=== PATIENT | female | born 1980 | race Caucasian/White ===

== ENCOUNTER → 2016-11-21 | Outpatient (CLI) | payer OTHER ==
[~2016-11-21] MED LIST: ADVI200T PO; BUSP1TAB PO; GABA-283 PO; IMIT6INJ SC; LIDO1OIN2 TOP; MIDO25TA PO; MIRA33504 PO; OMEP40CA2 PO; PROZ40CA PO; TIZA4CAP3 PO; TRAZ150T14 PO; WELL75TA PO; ZOFR20TA PO; ZONE100C4 PO; ZYRTTAB2 PO
[2016-11-23 09:38] LABS: FREE T4 0.93 NG/DL (0.76-1.46)
== END ==
LOC: M LAB 08:41
PROVIDERS: ATTEND Obstetrics & Gynecology
DX: N92.6 Irregular menstruation, unspecified (principal)

== ENCOUNTER → 2016-11-21 | Outpatient (CLI) | payer OTHER ==
[2016-11-21 09:23] LABS: BASO % 0.9 % (0.0-1.0); EOS # 0.2 K/mm3 (0.0-0.50); EOS % 3.2 % (0.0-3.0); LYMPH # 1.5 K/mm3 (1.5-4.5); LYMPH % 31.3 % (24.0-44.0); MEAN CORPUSCULAR HEMOGLOBIN 29.4 pg (27.0-33.0); MEAN CORPUSCULAR HGB CONC 32.8 g/dl (32.0-36.5); MEAN CORPUSCULAR VOLUME 89.6 fl (80.0-96.0); MONO # 0.3 K/mm3 (0.0-0.8); MONO % 5.3 % (0.0-5.0); NEUTROPHILS # 2.8 K/mm3 (1.8-7.7); NEUTROPHILS % 57.4 % (36.0-66.0); WHITE BLOOD COUNT 4.8 K/mm3 (4.0-10.0)
[2016-11-21 09:41] LABS: ALBUMIN 3.7 GM/DL (3.2-5.2); ALBUMIN/GLOBULIN RATIO 1.12 (1.00-1.93); ALKALINE PHOSPHATASE 79 U/L (45-117); ALT/SGPT 47 U/L (12-78); ANION GAP 10 MEQ/L (8-16); AST/SGOT 30 U/L (15-37); BILIRUBIN,TOTAL 0.5 MG/DL (0.2-1.0); BLOOD UREA NITROGEN 7 MG/DL (7-18); CALCIUM LEVEL 8.7 MG/DL (8.5-10.1); CARBON DIOXIDE LEVEL 26 MEQ/L (21-32); CHLORIDE LEVEL 106 MEQ/L (98-107); CHOLESTEROL LEVEL 234 MG/DL (<200); CREATININE FOR GFR 0.82 MG/DL (0.55-1.02); GLOMERULAR FILTRATION RATE > 60.0 (>60); GLUCOSE, FASTING 99 MG/DL (70-105); POTASSIUM SERUM 4.3 MEQ/L (3.5-5.1); SODIUM LEVEL 142 MEQ/L (136-145); TRIGLYCERIDES LEVEL 186 MG/DL (<150)
== END ==
LOC: M LAB 08:39
PROVIDERS: ATTEND Physician Assistant Medical
DX: E78.2 Mixed hyperlipidemia (principal)

== ENCOUNTER → 2017-03-08 | Outpatient (CLI) | payer OTHER ==
[2017-03-08 10:02] LABS: BASO % 0.7 % (0.0-1.0); EOS # 0.3 K/mm3 (0.0-0.50); EOS % 4.1 % (0.0-3.0); LYMPH # 1.8 K/mm3 (1.5-4.5); LYMPH % 25.8 % (24.0-44.0); MEAN CORPUSCULAR HEMOGLOBIN 30.2 pg (27.0-33.0); MEAN CORPUSCULAR HGB CONC 33.3 g/dl (32.0-36.5); MEAN CORPUSCULAR VOLUME 90.8 fl (80.0-96.0); MONO # 0.4 K/mm3 (0.0-0.8); MONO % 6.1 % (0.0-5.0); NEUTROPHILS % 61.2 % (36.0-66.0); RED CELL DISTRIBUTION WIDTH 12.9 % (11.5-14.5); WHITE BLOOD COUNT 6.5 K/mm3 (4.0-10.0)
[2017-03-08 10:26] LABS: ALBUMIN 3.5 GM/DL (3.2-5.2); ALBUMIN/GLOBULIN RATIO 1.09 (1.00-1.93); ALKALINE PHOSPHATASE 77 U/L (45-117); ALT/SGPT 49 U/L (12-78); ANION GAP 7 MEQ/L (8-16); AST/SGOT 28 U/L (15-37); BILIRUBIN,TOTAL 0.6 MG/DL (0.2-1.0); BLOOD UREA NITROGEN 9 MG/DL (7-18); CALCIUM LEVEL 8.4 MG/DL (8.5-10.1); CARBON DIOXIDE LEVEL 30 MEQ/L (21-32); CHLORIDE LEVEL 104 MEQ/L (98-107); CHOLESTEROL LEVEL 142 MG/DL (<200); CREATININE FOR GFR 0.82 MG/DL (0.55-1.02); GLOMERULAR FILTRATION RATE > 60.0 (>60); GLUCOSE, FASTING 106 MG/DL (70-105); SODIUM LEVEL 141 MEQ/L (136-145); TOTAL PROTEIN 6.7 GM/DL (6.4-8.2); TRIGLYCERIDES LEVEL 165 MG/DL (<150)
== END ==
LOC: M LAB 09:12
PROVIDERS: ATTEND Physician Assistant Medical
DX: E78.2 Mixed hyperlipidemia (principal)

== ENCOUNTER 2017-03-16 07:30 | Outpatient (RCR) | payer OTHER | END 2017-03-17 | LOC: M PT 07:30 | PROVIDERS: ATTEND Dentist General Practice | DX: Z51.89 Encounter for other specified aftercare (principal); M26.603 Bilateral temporomandibular joint disorder, unspecified ==

== ENCOUNTER 2017-04-06 07:30 | Outpatient (RCR) | payer OTHER ==
[~2017-04-06 07:30] MED LIST changes: +MIDO2.5T PO; -MIDO25TA PO; -TRAZ150T14 PO; +TRAZ1TAB14 PO; -ZONE100C4 PO; +ZONE1CAP PO; -ZYRTTAB2 PO; +ZYRTTAB8 PO
[2017-04-09] MEDS ORDERED: ZYRT10TA2 PO (20:18)
[2017-04-09] MEDS ORDERED: VITA1CAP40 PO (20:18)
[2017-04-09] MEDS ORDERED: LIPI20TA PO (20:18)
[2017-04-09] MEDS ORDERED: SING10TA32 PO (20:18)
[2017-04-09] MEDS ORDERED: PROT1TAB2 PO (20:18)
[2017-04-09] MEDS ORDERED: LYRI300C PO (20:18)
[2017-04-09] MEDS ORDERED: GABA-283 PO (20:18)
== END 2017-04-16 ==
LOC: M PT 07:30
PROVIDERS: ATTEND Dentist General Practice
DX: M26.623 Arthralgia of bilateral temporomandibular joint (principal); Z51.89 Encounter for other specified aftercare

== ENCOUNTER → 2017-04-07 | Outpatient (CLI) | payer OTHER ==
[~2017-04-07] MED LIST changes: +LIPI20TA PO; +LYRI300C PO; -MIDO2.5T PO; +MIDO25TA PO; +PROT1TAB2 PO; +SING10TA32 PO; +TRAZ150T14 PO; -TRAZ1TAB14 PO; +VITA50003 PO; +ZONE100C4 PO; -ZONE1CAP PO; +ZYRT10TA2 PO; +ZYRTTAB2 PO; -ZYRTTAB8 PO
--- NOTE | 2017-04-07 08:30 | REP ---
Clinical: Chest pain . Comparison: 02/19/2016 . Technique: PA and lateral. Findings: The mediastinum and cardiac silhouette are normal. The lung benitez are clear and without acute consolidation, effusion, or pneumothorax. The skeletal structures are intact and normal. Impression: 1. No acute cardiopulmonary process. Signed by Cesar Castro MD 04/07/2017 08:22 A
[2017-04-07 08:43] LABS: BASO # 0.1 K/mm3 (0.0-0.2); BASO % 1.1 % (0.0-1.0); EOS # 0.2 K/mm3 (0.0-0.50); EOS % 2.6 % (0.0-3.0); LYMPH # 1.6 K/mm3 (1.5-4.5); LYMPH % 26.8 % (24.0-44.0); MEAN CORPUSCULAR HEMOGLOBIN 30.1 pg (27.0-33.0); MEAN CORPUSCULAR HGB CONC 33.3 g/dl (32.0-36.5); MEAN CORPUSCULAR VOLUME 90.4 fl (80.0-96.0); MONO # 0.4 K/mm3 (0.0-0.8); MONO % 6.5 % (0.0-5.0); NEUTROPHILS # 3.5 K/mm3 (1.8-7.7); NEUTROPHILS % 60.4 % (36.0-66.0); RED CELL DISTRIBUTION WIDTH 12.4 % (11.5-14.5); WHITE BLOOD COUNT 5.8 K/mm3 (4.0-10.0)
[2017-04-07 08:48] LABS: ALBUMIN 3.9 GM/DL (3.2-5.2); ALBUMIN/GLOBULIN RATIO 1.22 (1.00-1.93); ALKALINE PHOSPHATASE 82 U/L (45-117); ALT/SGPT 50 U/L (12-78); ANION GAP 7 MEQ/L (8-16); AST/SGOT 25 U/L (15-37); BILIRUBIN,TOTAL 0.7 MG/DL (0.2-1.0); BLOOD UREA NITROGEN 7 MG/DL (7-18); CALCIUM LEVEL 8.9 MG/DL (8.5-10.1); CARBON DIOXIDE LEVEL 28 MEQ/L (21-32); CHLORIDE LEVEL 105 MEQ/L (98-107); CHOLESTEROL LEVEL 157 MG/DL (<200); GLOMERULAR FILTRATION RATE > 60.0 (>60); GLUCOSE, FASTING 101 MG/DL (70-105); POTASSIUM SERUM 4.1 MEQ/L (3.5-5.1); SODIUM LEVEL 140 MEQ/L (136-145); T UPTAKE 31 % (30-39); THYROXINE (T4) 10.7 UG/DL (4.5-12.0); TOTAL PROTEIN 7.1 GM/DL (6.4-8.2); TRIGLYCERIDES LEVEL 105 MG/DL (<150)
[2017-04-07 09:16] LABS: VITAMIN B12 LEVEL 316 PG/ML
[2017-04-07 09:17] LABS: FOLATE 13.4 NG/ML
[2017-04-08 11:00] LABS: ALBUMIN % 58.2 % (55.8-66.1)
[2017-04-08 11:01] LABS: ALBUMIN 4.13 GM/DL (3.29-5.55); GAMMA GLOBULIN % 13.4 % (11.1-18.8)
[2017-04-09 00:06] LABS: Lyme Disease IgG/IgM Antibodie <0.91 ISR (0.00-0.90); Lyme Disease IgM Ab Quantitati <0.80 index (0.00-0.79)
--- NOTE | 2017-04-09 00:06 | ECGEPIP ---
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
== END ==
LOC: M LAB 07:51
PROVIDERS: ATTEND Physician Assistant Medical
DX: R07.89 Other chest pain (principal)

== ENCOUNTER 2017-04-09 20:03 | Emergency (ER) | payer OTHER ==
[~2017-04-09] VITALS: Ht 167.6 cm; Wt 94.4 kg
[~2017-04-09 20:03] MED LIST changes: -LIPI20TA PO; -LYRI300C PO; +MIDO2.5T PO; -MIDO25TA PO; -PROT1TAB2 PO; -SING10TA32 PO; -TRAZ150T14 PO; +TRAZ1TAB14 PO; -VITA50003 PO; -ZONE100C4 PO; +ZONE1CAP PO; -ZYRT10TA2 PO; -ZYRTTAB2 PO; +ZYRTTAB8 PO
[2017-04-09] MEDS ORDERED: LYRI300C PO (20:18)
[2017-04-09] MEDS ORDERED: VITA1CAP40 PO (20:18)
[2017-04-09] MEDS ORDERED: PROT1TAB2 PO (20:18)
[2017-04-09] MEDS ORDERED: GABA-283 PO (20:18)
[2017-04-09] MEDS ORDERED: SING10TA32 PO (20:18)
[2017-04-09] MEDS ORDERED: LIPI20TA PO (20:18)
[2017-04-09] MEDS ORDERED: ZYRT10TA2 PO (20:18)
[2017-04-09] MEDS ORDERED: NS 1,000 ML IV ONE (21:00)
[2017-04-09] MEDS ORDERED: MORPHINE 4 MG/ML 1ML SYRINGE IV PRN (21:00)
[2017-04-09] MEDS ORDERED: ONDANSETRON 4MG/2ML VIAL (J2405) IV ONE (21:00)
[2017-04-09 21:48] LABS: BASO % 0.5 % (0.0-1.0); EOS # 0.2 K/mm3 (0.0-0.50); EOS % 2.7 % (0.0-3.0); LARGE UNSTAINED CELL # 0.2 K/mm3 (0.0-0.4); LARGE UNSTAINED CELL % 2.6 % (0.0-4.0); LYMPH # 2.1 K/mm3 (1.5-4.5); LYMPH % 29.5 % (24.0-44.0); MEAN CORPUSCULAR HEMOGLOBIN 30.2 pg (27.0-33.0); MEAN CORPUSCULAR HGB CONC 33.9 g/dl (32.0-36.5); MEAN CORPUSCULAR VOLUME 89.2 fl (80.0-96.0); MONO # 0.4 K/mm3 (0.0-0.8); MONO % 6.4 % (0.0-5.0); NEUTROPHILS # 3.9 K/mm3 (1.8-7.7); NEUTROPHILS % 58.3 % (36.0-66.0); PLATELET COUNT, AUTOMATED 211 k/mm3 (150-450); RED CELL DISTRIBUTION WIDTH 12.6 % (11.5-14.5); WHITE BLOOD COUNT 6.6 K/mm3 (4.0-10.0)
[2017-04-09 22:08] LABS: ANION GAP 8 MEQ/L (8-16); BLOOD UREA NITROGEN 8 MG/DL (7-18); CALCIUM LEVEL 8.4 MG/DL (8.5-10.1); CARBON DIOXIDE LEVEL 27 MEQ/L (21-32); CHLORIDE LEVEL 107 MEQ/L (98-107); CREATININE FOR GFR 1.05 MG/DL (0.55-1.02); GLOMERULAR FILTRATION RATE > 60.0 (>60); GLUCOSE, FASTING 90 MG/DL (70-105); POTASSIUM SERUM 3.8 MEQ/L (3.5-5.1); SODIUM LEVEL 142 MEQ/L (136-145)
[2017-04-10 01:42] VITALS: BP 109/69
--- NOTE | 2017-04-10 07:42 | ECGEPIP ---
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
--- NOTE | 2017-04-10 09:59 | REP ---
CHEST X-RAY PA AND LATERAL: 04/09/2017. CLINICAL HISTORY: Chest pain. COMPARISON: 04/07/2017, 02/19/2016. FINDINGS: The lung benitez remain well inflated and without infiltrate, effusion, atelectasis or mass. The heart, mediastinal and hilar contours are normal. There is no pneumothorax or pneumomediastinum. There is no widening of mediastinum. Airway, aorta and hilar contours are unremarkable. Bones intact. IMPRESSION: 1. No acute cardiopulmonary disease. Stable chest. Signed by Chad Carranza MD 04/10/2017 07:50 P
== END 2017-04-10 02:06 | disposition home or self-care (01) ==
LOC: M ED 22:09
DX: R07.89 Other chest pain (principal); K21.9 Gastro-esophageal reflux disease without esophagitis; E78.4 Other hyperlipidemia

== ENCOUNTER 2017-04-21 09:07 | Outpatient (RCR) | payer OTHER ==
[~2017-04-21 09:07] MED LIST changes: +LIPI20TA PO; +LYRI300C PO; +PROT1TAB2 PO; +SING10TA32 PO; +VITA1CAP40 PO; +ZYRT10TA2 PO
== END 2017-05-17 ==
LOC: M PT 09:07
PROVIDERS: ATTEND Dentist General Practice
DX: Z51.89 Encounter for other specified aftercare (principal); M26.603 Bilateral temporomandibular joint disorder, unspecified

== ENCOUNTER 2017-06-06 15:22 | Emergency (ER) | payer OTHER ==
[~2017-06-06] VITALS: Ht 167.6 cm; Wt 94.7 kg
[2017-06-06] MEDS ORDERED: IBUPROFEN 800 MG TAB PO ONE (17:15)
[2017-06-06] MEDS ORDERED: ACETAMINOPHEN TAB 650MG DOSE (2X325MG) PO ONE (17:15)
[2017-06-06] MEDS ORDERED: IBUP-1022 PO (17:46)
[2017-06-06] MEDS ORDERED: TYLE325T5 PO (17:46)
[2017-06-06 17:52] VITALS: BP 118/78
--- NOTE | 2017-06-07 11:44 | REP ---
SACRUM AND COCCYX SERIES: Three views. HISTORY: Trauma. FINDINGS: AP, tube-angled, and lateral views are presented. On the tube-angled view the distal, third segment of the coccyx is deviated to the right. This is a new finding when compared with the prior study of January 21, 2016 and is compatible with a distal coccygeal fracture. No other fracture is seen. Exam is otherwise unremarkable. IMPRESSION: New rightward deviation of the distal segment of the coccyx consistent with a fracture. Signed by Fili Avery MD 06/07/2017 12:36 P
== END 2017-06-06 18:08 | disposition home or self-care (01) ==
LOC: M ED 15:22
DX: S32.2XXA Fracture of coccyx, initial encounter for closed fracture (principal); W01.198A Fall on same level from slipping, tripping and stumbling with subsequent striking against other object, initial encounter; Y92.89 Other specified places as the place of occurrence of the external cause; Y93.19 Activity, other involving water and watercraft; Y99.9 Unspecified external cause status

== ENCOUNTER → 2017-08-11 | Outpatient (CLI) | payer OTHER ==
[~2017-08-11] MED LIST changes: +IBUP-1022 PO; +TYLE325T5 PO
[2017-08-11 15:33] LABS: FREE T4 0.77 NG/DL (0.76-1.46); TOTAL PROTEIN 6.7 GM/DL (6.4-8.2)
[2017-08-11 15:34] LABS: FOLATE 13.7 NG/ML; VITAMIN B12 LEVEL 392 PG/ML
[2017-08-12 12:14] LABS: ALBUMIN 3.99 GM/DL (3.29-5.55); ALBUMIN % 59.5 % (55.8-66.1); GAMMA GLOBULIN % 12.9 % (11.1-18.8)
== END ==
LOC: M LAB 12:44
PROVIDERS: ATTEND Psychiatry & Neurology Neurology
DX: M54.2 Cervicalgia (principal); G43.909 Migraine, unspecified, not intractable, without status migrainosus; M54.5 Low back pain; G89.29 Other chronic pain

== ENCOUNTER 2017-10-27 10:58 | Emergency (ER) | payer OTHER ==
[2017-10-27 11:33] LABS: BASO # 0.1 10^3/uL (0.0-0.2); BASO % 1.2 % (0.0-1.0); EOS # 0.2 10^3/uL (0.0-0.50); EOS % 3.1 % (0.0-3.0); HEMATOCRIT 41.4 % (36.0-47.0); HEMOGLOBIN 13.3 g/dl (12.0-16.0); IMMATURE GRANULOCYTE % 0.3 % (0-0); LYMPH # 2.3 10^3/uL (1.5-4.5); LYMPH % 33.4 % (24.0-44.0); MEAN CORPUSCULAR HEMOGLOBIN 28.6 pg (27.0-33.0); MEAN CORPUSCULAR HGB CONC 32.1 g/dl (32.0-36.5); MONO # 0.6 10^3/uL (0.0-0.8); MONO % 8.5 % (0.0-5.0); NEUTROPHILS # 3.6 10^3/uL (1.8-7.7); NEUTROPHILS % 53.5 % (36.0-66.0); PLATELET COUNT, AUTOMATED 338 10^3/uL (150-450); RED BLOOD COUNT 4.65 10^6/uL (4.00-5.40); RED CELL DISTRIBUTION WIDTH 13.8 % (11.5-14.5); WHITE BLOOD COUNT 6.7 10^3/uL (4.0-10.0)
== END 2017-10-27 12:45 | disposition home or self-care (01) ==
LOC: M ED 10:58
DX: N94.6 Dysmenorrhea, unspecified (principal); N83.202 Unspecified ovarian cyst, left side; S80.02XA Contusion of left knee, initial encounter; W18.31XA Fall on same level due to stepping on an object, initial encounter; Y92.89 Other specified places as the place of occurrence of the external cause; Y93.89 Activity, other specified; Y99.8 Other external cause status; G43.909 Migraine, unspecified, not intractable, without status migrainosus; I95.9 Hypotension, unspecified; J45.909 Unspecified asthma, uncomplicated; K21.9 Gastro-esophageal reflux disease without esophagitis; K58.9 Irritable bowel syndrome, unspecified; M79.7 Fibromyalgia; F32.9 Major depressive disorder, single episode, unspecified; F41.9 Anxiety disorder, unspecified; M54.9 Dorsalgia, unspecified; N97.9 Female infertility, unspecified; Z88.0 Allergy status to penicillin; Z88.2 Allergy status to sulfonamides; Z79.899 Other long term (current) drug therapy
CPT/HCPCS: 76856

== ENCOUNTER 2017-11-09 03:52 | Emergency (ER) | payer OTHER ==
[2017-11-09] MEDS: diphenhydrAMINE INJ 50MG/ML VIAL (J1200) IV (05:20)
[2017-11-09] MEDS: KETOROLAC 30 MG/ML VIAL (J1885) IV (05:20)
[2017-11-09] MEDS: METOCLOPRAMIDE INJ 10MG/2ML VIAL (J2765) IV (05:20)
[2017-11-09] MEDS: NS 1,000 ML IV (05:20)
== END 2017-11-09 08:24 | disposition home or self-care (01) ==
LOC: M ED 03:52
DX: G43.909 Migraine, unspecified, not intractable, without status migrainosus (principal); Z87.891 Personal history of nicotine dependence
CPT/HCPCS: J1200

== ENCOUNTER → 2017-12-30 | Outpatient (CLI) | payer OTHER ==
[2017-12-30 13:33] LABS: BASO # 0.1 10^3/uL (0.0-0.2); BASO % 0.9 % (0.0-1.0); EOS # 0.1 10^3/uL (0.0-0.50); EOS % 2.3 % (0.0-3.0); HEMATOCRIT 42.1 % (36.0-47.0); HEMOGLOBIN 13.5 g/dl (12.0-16.0); IMMATURE GRANULOCYTE % 0.9 % (0-3.0); LYMPH # 1.9 10^3/uL (1.5-4.5); LYMPH % 32.2 % (24.0-44.0); MEAN CORPUSCULAR HEMOGLOBIN 28.8 pg (27.0-33.0); MEAN CORPUSCULAR HGB CONC 32.1 g/dl (32.0-36.5); MEAN CORPUSCULAR VOLUME 89.8 fl (80.0-96.0); MONO # 0.5 10^3/uL (0.0-0.8); NEUTROPHILS # 3.2 10^3/uL (1.8-7.7); NEUTROPHILS % 54.7 % (36.0-66.0); PLATELET COUNT, AUTOMATED 297 10^3/uL (150-450); RED BLOOD COUNT 4.69 10^6/uL (4.00-5.40); RED CELL DISTRIBUTION WIDTH 14.6 % (11.5-14.5); WHITE BLOOD COUNT 5.8 10^3/uL (4.0-10.0)
[2017-12-30 14:02] LABS: ALBUMIN 3.8 GM/DL (3.2-5.2); ALBUMIN/GLOBULIN RATIO 1.15 (1.00-1.93); ALKALINE PHOSPHATASE 72 U/L (45-117); ALT/SGPT 25 U/L (12-78); ANION GAP 9 MEQ/L (8-16); AST/SGOT 12 U/L (7-37); BILIRUBIN,TOTAL 0.4 MG/DL (0.2-1.0); BLOOD UREA NITROGEN 9 MG/DL (7-18); CALCIUM LEVEL 8.8 MG/DL (8.5-10.1); CARBON DIOXIDE LEVEL 24 MEQ/L (21-32); CHLORIDE LEVEL 109 MEQ/L (98-107); CHOLESTEROL LEVEL 200 MG/DL (<200); CHOLESTEROL RISK RATIO 5.263 (<5); CREATININE FOR GFR 0.92 MG/DL (0.55-1.30); GLOMERULAR FILTRATION RATE > 60.0 (>60); GLUCOSE, FASTING 100 MG/DL (70-100); HDL CHOLESTEROL 38 MG/DL (>40); LDL CHOLESTEROL 122.6 MG/DL (<100); NON-HDL-C 162 MG/DL; POTASSIUM SERUM 4.3 MEQ/L (3.5-5.1); SODIUM LEVEL 142 MEQ/L (136-145); TOTAL PROTEIN 7.1 GM/DL (6.4-8.2); TRIGLYCERIDES LEVEL 197 MG/DL (<150)
[2017-12-30 14:10] LABS: TOTAL 25(OH) VITAMIN D 24.7 NG/ML (30.0-100.0); VITAMIN B12 LEVEL 355 PG/ML (247-911)
[2017-12-30 14:35] LABS: ESTIMATED AVERAGE GLUCOSE 117 MG/DL (60-110); HEMOGLOBIN A1c 5.7 %
== END ==
LOC: M WUC 08:48
DX: F31.81 Bipolar II disorder (principal)
CPT/HCPCS: 84443

== ENCOUNTER → 2018-02-07 | Outpatient (REF) | payer OTHER | LOC: M LABNEURO 13:40 | DX: Z01.818 Encounter for other preprocedural examination (principal) | CPT/HCPCS: 87081 ==

== ENCOUNTER 2018-02-09 05:54 | Inpatient (IN) | payer OTHER ==
[2018-02-09 06:38] LABS: CONTROL LINE UCG INT CTR LINE PRESENT; URINE PREG TEST NEGATIVE (NEGATIVE)
[2018-02-09] MEDS ORDERED: ROCURONIUM BROMIDE 50 MG/5 ML VIAL As Ordered ×2 (07:11→08:31)
[2018-02-09] MEDS ORDERED: PROPOFOL 200 MG/20 ML VIAL As Ordered (07:11)
[2018-02-09] MEDS ORDERED: fentaNYL 100 MCG/2 ML INJECTION (J3010) As Ordered (07:12)
[2018-02-09] MEDS ORDERED: MIDAZOLAM INJ 2 MG/2 ML VIAL (J2250) As Ordered (07:13)
[2018-02-09] MEDS: CLINDAMYCIN 900 MG in APPROPRIATE DILUENT 1 EA IV (07:13)
[2018-02-09] MEDS: LR 1,000 ML IV ×2 (07:13→11:30)
[2018-02-09] MEDS ORDERED: LIDOCAINE 2% INJ 100 MG/5 ML SDV (FOR ANES.) As Ordered (07:13)
[2018-02-09] MEDS: THROMBIN SOLN 20,000 UNITS KIT As Ordered (07:26)
[2018-02-09] MEDS: methylPREDNISolone SUSP 40 MG/ML (DEPO-medrol) VIAL (J1030) As Ordered (07:26)
[2018-02-09] MEDS: BACITRACIN PWD 50,000 UNITS VIAL As Ordered ×2 (07:26→07:28)
[2018-02-09] MEDS ORDERED: GLYCOPYRROLATE INJ 0.2 MG/ML 2 ML VIAL As Ordered (08:41)
[2018-02-09] MEDS ORDERED: ePHEDrine SULFATE 25 MG/5 ML(5MG/ML) SYRINGE As Ordered ×2 (08:44→09:55)
[2018-02-09] MEDS: lamoTRIgine 25 MG TAB PO (09:00)
[2018-02-09] MEDS: PREGABALIN 100 MG CAP (LYRICA) PO (09:00)
[2018-02-09] MEDS ORDERED: PHENYLephrine HCL 500 MCG/5 ML (100MCG/ML) SYRINGE (J2370) As Ordered ×2 (09:28→09:55)
[2018-02-09] MEDS ORDERED: dexameTHASONE 4 MG/ML 1ML VIAL (J1100) As Ordered ×2 (10:10)
[2018-02-09] MEDS ORDERED: ONDANSETRON 4MG/2ML VIAL (J2405) As Ordered (10:10)
[2018-02-09] MEDS ORDERED: METOCLOPRAMIDE INJ 10MG/2ML VIAL (J2765) As Ordered (10:10)
[2018-02-09] MEDS ORDERED: NEOSTIGMINE 10 MG/10 ML VIAL (J2710) As Ordered (10:14)
[2018-02-09] MEDS ORDERED: HYDROmorphone HCL 1 MG/ML SYRINGE (J1170) IV (11:30)
[2018-02-09] MEDS: fentaNYL 100 MCG/2 ML INJECTION (J3010) IV ×4 (11:30→11:54)
[2018-02-09] MEDS ORDERED: PERCOCET 5MG/325MG TAB PO (11:30)
[2018-02-09] MEDS ORDERED: ONDANSETRON 4MG/2ML VIAL (J2405) IV ×2 (11:30→11:45)
[2018-02-09] MEDS ORDERED: MORPHINE 4 MG/ML 1ML VIAL/SYRINGE (J2270) IV (11:45)
[2018-02-09] MEDS: KCL 20MEQ IN D5/0.45NS 1000ML 1,000 ML IV (11:45)
[2018-02-09] MEDS ORDERED: ACETAMINOPHEN TAB 650MG DOSE (2X325MG) PO (11:45)
[2018-02-09] MEDS: NORCO, ANEXSIA 5/325MG TABLET (HYDROcodone/ACETAMINOPHEN) PO (18:13)
[2018-02-09] MEDS: PANTOPRAZOLE 40MG TAB (PROTONIX) PO (18:13)
[2018-02-10] MEDS ORDERED: VANCOMYCIN HCL 1,000 MG, VIAL MATE ADAPTER 1 EACH in D5W 250 ML IV (09:00)
== END 2018-02-09 20:00 | disposition home or self-care (01) | DRG 304 ==
LOC: M OR 05:54 → M MS5PR 15:05
PROC: 01NB0ZZ Release Lumbar Nerve, Open Approach (ICD-10-PCS; principal; 2018-02-09 07:49)
PROC: 0SG00K1 Fusion of Lumbar Vertebral Joint with Nonautologous Tissue Substitute, Posterior Approach, Posterior Column, Open Approach (ICD-10-PCS; 2018-02-09 07:49)
PROC: 0Q800ZZ Division of Lumbar Vertebra, Open Approach (ICD-10-PCS; 2018-02-09 07:49)
DX: M48.062 Spinal stenosis, lumbar region with neurogenic claudication (principal); E66.9 Obesity, unspecified; M47.26 Other spondylosis with radiculopathy, lumbar region

== ENCOUNTER → 2018-06-21 | Outpatient (CLI) | payer OTHER ==
[2018-06-21 10:50] LABS: HEMATOCRIT 41.9 % (36.0-47.0); HEMOGLOBIN 13.8 g/dl (12.0-15.5); MEAN CORPUSCULAR HEMOGLOBIN 28.7 pg (27.0-33.0); MEAN CORPUSCULAR HGB CONC 32.9 g/dl (32.0-36.5); MEAN CORPUSCULAR VOLUME 87.1 fl (80.0-96.0); PLATELET COUNT, AUTOMATED 285 10^3/uL (150-450); RED BLOOD COUNT 4.81 10^6/uL (4.00-5.40); RED CELL DISTRIBUTION WIDTH 14.2 % (11.5-14.5); WHITE BLOOD COUNT 7.9 10^3/uL (4.0-10.0)
[2018-06-21 11:12] LABS: ESTIMATED AVERAGE GLUCOSE 105 MG/DL (60-110); HEMOGLOBIN A1c 5.3 %
[2018-06-21 11:13] LABS: TOTAL 25(OH) VITAMIN D 47.3 NG/ML (30.0-100.0)
[2018-06-21 11:24] LABS: ALBUMIN 3.9 GM/DL (3.2-5.2); ALBUMIN/GLOBULIN RATIO 1.11 (1.00-1.93); ALKALINE PHOSPHATASE 82 U/L (45-117); ALT/SGPT 22 U/L (12-78); ANION GAP 7 MEQ/L (8-16); AST/SGOT 13 U/L (7-37); BILIRUBIN,TOTAL 0.6 MG/DL (0.2-1.0); BLOOD UREA NITROGEN 15 MG/DL (7-18); CALCIUM LEVEL 8.9 MG/DL (8.5-10.1); CARBON DIOXIDE LEVEL 26 MEQ/L (21-32); CHLORIDE LEVEL 107 MEQ/L (98-107); CHOLESTEROL LEVEL 224 MG/DL (<200); CHOLESTEROL RISK RATIO 4.666 (<5); CREATININE FOR GFR 0.92 MG/DL (0.55-1.30); GLOMERULAR FILTRATION RATE > 60.0 (>60); GLUCOSE, FASTING 89 MG/DL (70-100); HDL CHOLESTEROL 48 MG/DL (>40); LDL CHOLESTEROL 147.2 MG/DL (<100); NON-HDL-C 176 MG/DL; POTASSIUM SERUM 4.4 MEQ/L (3.5-5.1); SODIUM LEVEL 140 MEQ/L (136-145); TOTAL PROTEIN 7.4 GM/DL (6.4-8.2); TRIGLYCERIDES LEVEL 144 MG/DL (<150)
== END ==
LOC: M LAB 09:40
DX: I10 Essential (primary) hypertension (principal)
CPT/HCPCS: 84443

== ENCOUNTER → 2018-06-23 | Outpatient (CLI) | payer OTHER | LOC: M WUC 19:02 | DX: M54.5 Low back pain (principal) | CPT/HCPCS: 72110 ==

== ENCOUNTER → 2019-03-22 | Outpatient (CLI) | payer OTHER ==
[~2019-03-22] MED LIST changes: +DOXY25SU; -GABA-283 PO; +GABA-845 PO; +LAMI25TA PO; +NORC1TAB7 PO; +TIZA4CAP PO; -TIZA4CAP3 PO; -VITA1CAP40 PO; +VITA50005 PO; -ZOFR20TA PO; +ZOFR4TAB16 PO; +ZYRT10CA5 PO; -ZYRT10TA2 PO
--- NOTE | 2019-03-22 18:34 | REP ---
Clinical: Pelvic pain . Technique: Transabdominal pelvic ultrasound followed by transvaginal examination for better evaluation of the endometrium and adnexa with color Doppler evaluation of the ovaries. Findings: Bladder is unremarkable and measures 10.4 x 6.0 x 9.9 cm . Normal anteverted uterus measures 9.2 x 4.7 x 5.7 cm . The endometrial complex measures 13.6 mm thickness. No discrete uterine or endometrial abnormalities are appreciated. Bilateral ovaries are normal in appearance and vascularity without evidence for torsion. Right ovary measures 2.3 x 1.8 x 1.9 cm ; R I = 0.46 . Left ovary measures 3.6 x 2.2 x 2.4 cm ; R I = 0.50 . No pelvic fluid or adnexal mass lesion . Impression: 1. Normal pelvic ultrasound Electronically Signed by Cesar Castro MD 03/22/2019 06:25 P
== END ==
LOC: M RAD 14:53
PROVIDERS: ATTEND Family Medicine
DX: R19.04 Left lower quadrant abdominal swelling, mass and lump (principal)

== ENCOUNTER → 2019-03-27 | Outpatient (CLI) | payer OTHER ==
--- NOTE | 2019-03-27 16:56 | REPMRS ---
Patient History The patient states she had a clinical breast exam in February 2019.Family history of unknown cancer at age 45 in mother, endometrial cancer at age 30 in paternal grandmother. Digital Mammo Screening Bilat: March 27, 2019 - Exam #: [id number] Bilateral CC and MLO view(s) were taken. Technologist: Lizbeth Lux, Technologist Prior study comparison: March 23, 2018, bilateral digital mammo screening bilat performed at [facility]. FINDINGS: The breast tissue is heterogeneously dense. This may lower the sensitivity of mammography. There is a moderate amount of heterogeneously dense fibroglandular tissue which is fairly symmetric. There is no interval development of dominant mass, architectural distortion, or clustered microcalcification typical of malignancy. There has been no change in the appearance of the mammogram from the prior studies. 3-D tomosynthesis shows no additional findings. Assessment: BI-RADS/ACR category 1 mammogram. Negative Mammogram. Recommendation Routine screening mammogram of both breasts in 1 year (for women over age 40). This patient's Lifetime Breast Cancer RIsk is estimated at 9.2 %. This mammogram was interpreted with the aid of an FDA-approved computer-aided dectection system. Electronically Signed By: Clint Avery MD 03/27/19 [id number]
== END ==
LOC: M RAD 16:09
PROVIDERS: ATTEND Family Medicine
DX: Z12.31 Encounter for screening mammogram for malignant neoplasm of breast (principal); Z80.9 Family history of malignant neoplasm, unspecified

== ENCOUNTER 2019-05-25 10:16 | Emergency (ER) | payer OTHER ==
[~2019-05-25] VITALS: Ht 167.6 cm; Wt 68.2 kg
[2019-05-25] MEDS ORDERED: PREN1CHW PO (10:25)
--- NOTE | 2019-05-25 12:00 | REP ---
FIRST TRIMESTER ULTRASOUND: Real-time sonographic evaluation of the gravid uterus performed utilizing transabdominal and endovaginal technique. There is a single living intrauterine gestation with an estimated gestational age of 6 weeks 4 days based on the crown-rump length of 7 mm, EDC 01/14/2020. heart rate 119 beats per minute. There is no subchorionic hemorrhage. Cystic structure of the right ovary probably represents an corpus luteum measuring approximately 1.8 cm in diameter. There is no torsion. Electronically Signed by Johnny Thacker MD 05/25/2019 01:20 P
[2019-05-25 12:12] LABS: BASO # 0.1 10^3/uL (0.0-0.2); BASO % 0.7 % (0.0-1.0); EOS # 0.1 10^3/uL (0.0-0.50); EOS % 0.9 % (0.0-3.0); HEMATOCRIT 38.6 % (36.0-47.0); HEMOGLOBIN 12.8 g/dl (12.0-15.5); LYMPH # 1.4 10^3/uL (1.5-4.5); LYMPH % 20.3 % (24.0-44.0); MEAN CORPUSCULAR HEMOGLOBIN 29.8 pg (27.0-33.0); MEAN CORPUSCULAR HGB CONC 33.2 g/dl (32.0-36.5); MONO # 0.6 10^3/uL (0.0-0.8); MONO % 9.2 % (0.0-5.0); NEUTROPHILS # 4.7 10^3/uL (1.8-7.7); NEUTROPHILS % 68.6 % (36.0-66.0); PLATELET COUNT, AUTOMATED 247 10^3/uL (150-450); RED BLOOD COUNT 4.29 10^6/uL (4.00-5.40); WHITE BLOOD COUNT 6.9 10^3/uL (4.0-10.0)
[2019-05-25 12:45] LABS: BLOOD UREA NITROGEN 8 MG/DL (7-18); CALCIUM LEVEL 8.9 MG/DL (8.5-10.1); CARBON DIOXIDE LEVEL 25 MEQ/L (21-32); CHLORIDE LEVEL 107 MEQ/L (98-107); CREATININE FOR GFR 0.71 MG/DL (0.55-1.30); GLOMERULAR FILTRATION RATE > 60.0 (>58); GLUCOSE, FASTING 84 MG/DL (70-100); HCG, SERUM QUANTITATIVE 75079 MIU/ML; POTASSIUM SERUM 4.1 MEQ/L (3.5-5.1); SODIUM LEVEL 137 MEQ/L (136-145)
[2019-05-25 14:15] VITALS: BP 106/70
== END 2019-05-25 14:17 | disposition home or self-care (01) ==
LOC: M ED 10:16
DX: Z32.01 Encounter for pregnancy test, result positive (principal); N83.201 Unspecified ovarian cyst, right side; Z3A.01 Less than 8 weeks gestation of pregnancy; F41.9 Anxiety disorder, unspecified; F32.9 Major depressive disorder, single episode, unspecified; J45.909 Unspecified asthma, uncomplicated; K58.9 Irritable bowel syndrome, unspecified; N80.9 Endometriosis, unspecified; G43.909 Migraine, unspecified, not intractable, without status migrainosus; Z87.42 Personal history of other diseases of the female genital tract; Z88.0 Allergy status to penicillin; Z88.2 Allergy status to sulfonamides

== ENCOUNTER → 2019-05-29 | Outpatient (CLI) | payer OTHER ==
[~2019-05-29] MED LIST changes: +PREN1CHW PO
[2019-05-29 13:42] LABS: BASO # 0.1 10^3/uL (0.0-0.2); BASO % 0.5 % (0.0-1.0); EOS # 0.1 10^3/uL (0.0-0.50); EOS % 0.9 % (0.0-3.0); HEMATOCRIT 42.4 % (36.0-47.0); HEMOGLOBIN 13.9 g/dl (12.0-15.5); LYMPH # 1.9 10^3/uL (1.5-4.5); LYMPH % 15.5 % (24.0-44.0); MEAN CORPUSCULAR HEMOGLOBIN 30.4 pg (27.0-33.0); MEAN CORPUSCULAR HGB CONC 32.8 g/dl (32.0-36.5); MEAN CORPUSCULAR VOLUME 92.8 fl (80.0-96.0); MONO % 8.2 % (0.0-5.0); NEUTROPHILS # 8.9 10^3/uL (1.8-7.7); NEUTROPHILS % 74.6 % (36.0-66.0); PLATELET COUNT, AUTOMATED 272 10^3/uL (150-450); RED BLOOD COUNT 4.57 10^6/uL (4.00-5.40)
[2019-05-29 14:59] LABS: HEPATITIS C VIRUS ABY INDEX 0.1 INDEX (<0.8); HIV 1&2 SCREEN CENTAUR NEGATIVE (NEGATIVE); RUBELLA IgG QUALITATIVE IMMUNE (IMMUNE)
[2019-05-29 17:19] LABS: CHLAMYDIA DNA AMPLIFICATION NEGATIVE (NEGATIVE); GC DNA AMPLIFICATION NEGATIVE (NEGATIVE)
== END ==
LOC: M LAB 12:17
PROVIDERS: ATTEND Advanced Practice Midwife
DX: Z34.81 Encounter for supervision of other normal pregnancy, first trimester (principal); Z3A.00 Weeks of gestation of pregnancy not specified

== ENCOUNTER → 2019-06-26 | Outpatient (CLI) | payer OTHER | LOC: M SMT 08:13 | PROVIDERS: ATTEND Advanced Practice Midwife | DX: O09.511 Supervision of elderly primigravida, first trimester (principal); Z3A.00 Weeks of gestation of pregnancy not specified ==

== ENCOUNTER 2019-07-18 08:51 | Emergency (ER) | payer OTHER ==
[~2019-07-18] VITALS: Ht 170.2 cm; Wt 74.1 kg
[2019-07-18] MEDS ORDERED: FLUO10CA8 PO (09:18)
[2019-07-18 10:10] LABS: BASO % 0.4 % (0.0-1.0); EOS # 0.1 10^3/uL (0.0-0.5); EOS % 1.2 % (0.0-3.0); HEMOGLOBIN 13.3 g/dl (12.0-15.5); LYMPH # 1.7 10^3/uL (1.5-5.0); LYMPH % 20.7 % (24.0-44.0); MEAN CORPUSCULAR HEMOGLOBIN 30.6 pg (27.0-33.0); MEAN CORPUSCULAR HGB CONC 34.1 g/dl (32.0-36.5); MEAN CORPUSCULAR VOLUME 89.7 fl (80.0-96.0); MONO # 0.7 10^3/uL (0.0-0.8); NEUTROPHILS # 5.7 10^3/uL (1.5-8.5); NEUTROPHILS % 69.3 % (36.0-66.0); PLATELET COUNT, AUTOMATED 269 10^3/uL (150-450); RED BLOOD COUNT 4.35 10^6/uL (4.00-5.40); WHITE BLOOD COUNT 8.2 10^3/uL (4.0-10.0)
[2019-07-18 10:25] LABS: BLOOD UREA NITROGEN 8 MG/DL (7-18); CALCIUM LEVEL 8.7 MG/DL (8.5-10.1); CARBON DIOXIDE LEVEL 23 MEQ/L (21-32); CHLORIDE LEVEL 106 MEQ/L (98-107); CREATININE FOR GFR 0.63 MG/DL (0.55-1.30); GLOMERULAR FILTRATION RATE > 60.0 (>58); GLUCOSE, FASTING 79 MG/DL (70-100); SODIUM LEVEL 137 MEQ/L (136-145)
[2019-07-18] MEDS ORDERED: ACETAMINOPHEN TAB 650MG DOSE (2X325MG) PO ONE (11:45)
[2019-07-18 13:15] VITALS: BP 113/74
== END 2019-07-18 13:17 | disposition home or self-care (01) ==
LOC: M ED 08:51
DX: O99.89 Other specified diseases and conditions complicating pregnancy, childbirth and the puerperium (principal); R19.7 Diarrhea, unspecified; B96.20 Unspecified Escherichia coli [E. coli] as the cause of diseases classified elsewhere; O99.342 Other mental disorders complicating pregnancy, second trimester; F33.9 Major depressive disorder, recurrent, unspecified; F41.9 Anxiety disorder, unspecified; K58.9 Irritable bowel syndrome, unspecified; Z88.0 Allergy status to penicillin; Z88.1 Allergy status to other antibiotic agents; Z88.2 Allergy status to sulfonamides; Z3A.14 14 weeks gestation of pregnancy

== ENCOUNTER → 2019-08-21 | Outpatient (CLI) | payer OTHER ==
[~2019-08-21] MED LIST changes: +FLUO10CA8 PO; -OMEP40CA2 PO; +OMEP40CA97 PO
--- NOTE | 2019-08-22 03:25 | REP ---
Clinical: Anatomical evaluation. Comparison: 05/25/2019 . Findings: Examination demonstrates a single live intrauterine in cephalic presentation. motion is identified by technologist. Placenta is noted anterior and grade air zero without evidence for placenta previa or abruption. Amniotic fluid volume is normal. Cervix measures 4.6 cm in length and appears closed. No evidence for nuchal cord. Gestational age by LMP 20 weeks 4-day with ALTA 01/04/2020 . Gestational age by current measurements 19 weeks 4 days with ALTA 01/11/2020 . FHR equals 141 beats per minute. BPD 4.7 cm 20 weeks 2 days HC 16.8 cm 19 weeks 3 day AC 13.9 cm 19 weeks 2 days FL 3.1 cm 19 weeks 4 days HL 3.0 cm 20 weeks 0 days HC/AC ratio 1.21 Estimated weight 293 grams ( the 58th percentile). Anatomical assessment demonstrates normal structures including cranium, choroid plexus, cavum, cerebellum/posterior fossa, facial features, lungs, four-chamber heart/ventricular outflow tracts, diaphragm, stomach, cord insertion/three-vessel cord, kidneys/bladder, spine, and extremities. Impression: Single live intrauterine in cephalic presentation demonstrating appropriate interval growth when compared to first ultrasound. Anatomical assessment is complete and normal. No gross abnormalities are identified. Electronically Signed by Cesar Castro MD 08/22/2019 03:16 A
== END ==
LOC: M RAD 10:58
PROVIDERS: ATTEND Advanced Practice Midwife
DX: O09.522 Supervision of elderly multigravida, second trimester (principal); Z3A.19 19 weeks gestation of pregnancy

== ENCOUNTER → 2019-10-19 | Outpatient (CLI) | payer OTHER ==
[~2019-10-19] MED LIST changes: +FLUO10CA15 PO; -FLUO10CA8 PO
[2019-10-19 14:10] LABS: BASO % 0.3 % (0.0-1.0); EOS # 0.2 10^3/uL (0.0-0.5); EOS % 1.4 % (0.0-3.0); HEMATOCRIT 39.8 % (36.0-47.0); HEMOGLOBIN 12.1 g/dl (12.0-15.5); LYMPH # 0.7 10^3/uL (1.5-5.0); LYMPH % 6.1 % (24.0-44.0); MEAN CORPUSCULAR HEMOGLOBIN 28.2 pg (27.0-33.0); MEAN CORPUSCULAR HGB CONC 30.4 g/dl (32.0-36.5); MEAN CORPUSCULAR VOLUME 92.8 fl (80.0-96.0); MONO # 0.9 10^3/uL (0.0-0.8); NEUTROPHILS % 83.6 % (36.0-66.0); PLATELET COUNT, AUTOMATED 218 10^3/uL (150-450); RED BLOOD COUNT 4.29 10^6/uL (4.00-5.40); WHITE BLOOD COUNT 10.7 10^3/uL (4.0-10.0)
== END ==
LOC: M PLALAB 09:22
PROVIDERS: ATTEND Advanced Practice Midwife
DX: O09.529 Supervision of elderly multigravida, unspecified trimester (principal)

== ENCOUNTER → 2019-10-25 | Outpatient (CLI) | payer OTHER | LOC: M LAB 06:59 | PROVIDERS: ATTEND Advanced Practice Midwife | DX: O99.213 Obesity complicating pregnancy, third trimester (principal) ==

== ENCOUNTER 2019-11-21 09:22 | Outpatient (CLI) | payer OTHER ==
[~2019-11-21] VITALS: Ht 170.2 cm; Wt 87.4 kg
[2019-11-21 09:35] VITALS: BP 110/74
== END 2019-11-21 10:18 | disposition home or self-care (01) ==
LOC: M LDO 09:22
PROVIDERS: ATTEND Obstetrics & Gynecology
DX: O36.8131 Decreased fetal movements, third trimester, fetus 1 (principal); O26.893 Other specified pregnancy related conditions, third trimester; M79.7 Fibromyalgia; O99.343 Other mental disorders complicating pregnancy, third trimester; F41.9 Anxiety disorder, unspecified; F33.9 Major depressive disorder, recurrent, unspecified; Z3A.32 32 weeks gestation of pregnancy

== ENCOUNTER → 2019-12-19 | Outpatient (REF) | payer OTHER | LOC: M SFHCWAGY 17:17 | PROVIDERS: ATTEND Obstetrics & Gynecology | DX: Z36.85 Encounter for antenatal screening for Streptococcus B (principal); Z3A.36 36 weeks gestation of pregnancy ==

== ENCOUNTER → 2019-12-29 | Outpatient (CLI) | payer OTHER | LOC: M WHC 08:48 | PROVIDERS: ATTEND Obstetrics & Gynecology | DX: Z53.9 Procedure and treatment not carried out, unspecified reason (principal); O09.523 Supervision of elderly multigravida, third trimester ==

== ENCOUNTER 2020-01-07 06:58 | Inpatient (IN) | payer OTHER ==
[2020-01-07] VITALS (9 sets, daily range): BP systolic 106–134; BP diastolic 59–75
[~2020-01-07] VITALS: Ht 170.2 cm; Wt 91.5 kg
[2020-01-07] MEDS: miSOPROStol 50 MCG 1/2 TAB (S0191) PO SCH ×4 (08:10→23:32)
--- NOTE | 2020-01-07 08:10 | HPEPDOC ---
Obstetrical History & Physical General Date of Admission Jan 07, 2020 at 06:58 History of Present Illness 39-year-old 4, para 1 presents at 39 weeks for induction labor. course is been unremarkable. She initiated care first trimesters been appropriate throughout. Chief Complaint: Induction of labor Information Provided By: Patient Age: 39 : 4 Term: 1 Livin Care Care: Good Care Dating Final EDC: Jan 14, 2020 Final EDC by: 1st trimester (US) Past Medical History Past Obstetrical History : Past Obstetrical History: Multigravida Type of Delivery: Spontaneous Vaginal Del. Sex of : Female Complications: No POLYSOMNOGRAPHIC TECH History: Spontaneous Past Medical History Surgical History: Other Family History Significant Family History: No pertinent family hx Social History Psychosocial History: Anxiety, Depression * Smoker: non-smoker Alcohol: Denies Allergies Coded Allergies: Penicillins (Verified Allergy, Intermediate, hives, 05/25/19) Sulfa (Sulfonamide Antibiotics) (Verified Allergy, Intermediate, hives, 05/25/19) Medications Scheduled Comb No.42/Folic Acid (Prena1 Chew Tablet) 1.4 Mg Tab.ch.bph, 1 TAB PO DAILY Physical Examination Physical Examination GENERAL: Alert and oriented times three. BREAST: . ABDOMEN: Gravid and non-tender to touch. FETUS: Is vertex (VTX) by sterile vaginal examination (SVE), fetus is vertex (VTX) by Rufino. HEART RATE: Regular rate and rhythm. LUNGS: Clear to auscultation (CTA). Laboratory Data 24H LABS Laboratory Tests 2 01/07/20 07:07: Serology Scanned Report Hepatitis B Testing Pertinent Laboratoy Data Blood Type: O+ RBC Antibody Screen: Negative HIV: Negative Hepatitis B: Negative Hepatitis C: Negative Rapid Plasma Reagin: Nonreactive Rubella: Immune Chlamydia/Gonorrhea: Negative Anatomy Ultrasound Placenta Location: Anterior Normal Anatomy: Yes Placenta Previa: No Vaginal Examination Dilation: Fingertip Station: -3 Cervical Consistency: Medium Cervical Position: Posterior Presentation: Cephalic presentation Assessment Variability: Increased Accelerations: Positive Tocometer Contractions: No Assessment/Plan Assessment 1. 39-year-old 4, para 1 at 39 weeks 0 days estimated gestational age, here for induction of labor due advanced maternal age. 2. Reassuring status Plan Admit and orient. Contact Center Director and consent. Diet: Regular. Group B Streptococcus (GBS) negative. Labs and intravenous (IV) per unit protocol. Counseled on Pitocin and induction of labor (IOL). Anticipate normal spontaneous delivery (). C-S as appropriate. LENORE ALVARENGA MD. Jan 07, 2020 08:09
[2020-01-07] MEDS ORDERED: GABA-845 PO (08:24)
[2020-01-07 08:30] LABS: HEMATOCRIT 35.1 % (36.0-47.0); HEMOGLOBIN 11.3 g/dl (12.0-15.5); MEAN CORPUSCULAR HEMOGLOBIN 26.9 pg (27.0-33.0); MEAN CORPUSCULAR HGB CONC 32.2 g/dl (32.0-36.5); MEAN CORPUSCULAR VOLUME 83.6 fl (80.0-96.0); PLATELET COUNT, AUTOMATED 209 10^3/uL (150-450); WHITE BLOOD COUNT 8.4 10^3/uL (4.0-10.0)
[2020-01-07] MEDS ORDERED: BUTORPHANOL 2 MG/ML INJ (J0595) IV ONE (22:15)
[2020-01-07] MEDS: PROMETHAZINE INJ 25 MG/ML VIAL (J2550) IV PRN (22:18)
[2020-01-08] VITALS (48 sets, daily range): BP systolic 91–142; BP diastolic 50–82
[2020-01-08] MEDS: miSOPROStol 50 MCG 1/2 TAB (S0191) PO SCH
[2020-01-08] MEDS ORDERED: BUTORPHANOL 2 MG/ML INJ (J0595) IV ONE (04:30)
[2020-01-08] MEDS: PROMETHAZINE INJ 25 MG/ML VIAL (J2550) IV PRN (04:45)
[2020-01-08] MEDS: LR 1,000 ML IV SCH ×2 (05:00→13:00)
--- NOTE | 2020-01-08 07:59 | IPNPDOC ---
Obstetrical Progress Note Date of Service Jan 08, 2020 Subjective Patient reports she feels her contractions. She did receive a dose of Stadol and Phenergan for pain management a few hours ago. Objective Vital Signs Date Time Temp Pulse Resp B/P (MAP) Pulse Ox O2 Delivery O2 Flow Rate FiO2 01/08/20 06:53 71 16 119/66 (83) 01/08/20 04:51 98.7 01/07/20 22:23 98 Room Air Assessment Heart Rate (FHR): 135 Variability: Moderate Accelerations: Positive Decelerations: None Heart Rate Tracing: Category I Tocometer Contractions: Yes Frequency: regular Sterile Vaginal Examination Dilation: 3 cm (3-4 cm) Effacement (%): 70% Station: -1 Cervical Consistency: Soft Cervical Position: Anterior Postion/Presentation: Cephalic presentation Assessment and Plan Age: 39 : 4 Term: 1 Pre-term: 0 Abortions: 2 Livin EGA at Admission: 39 Weeks & Days 39.1 Status: Reassuring Group B Streptococcus: Negative Anticipate: Vaginal Delivery Additional Comments Reviewed options of starting IV Pitocin or AROM. Patient desires AROM. AROM showing a large amount of clear fluid. DIAZ LESTER CNM Jan 08, 2020 07:59
[2020-01-08] MEDS ORDERED: OXYTOCIN DRIP 30 UNITS in IV 1 EA IV SCH ×2 (10:00→19:31)
[2020-01-08] MEDS ORDERED: FENTANYL 2MCG/ML ROPIVACAINE 0.2% IN 0.9% NACL 100ML IVBAG As Ordered ONE (10:15)
[2020-01-08] MEDS ORDERED: ePHEDrine SULFATE 25 MG/5 ML(5MG/ML) SYRINGE As Ordered ONE (11:29)
[2020-01-08] MEDS ORDERED: FENTANYL/ROPIVACAINE/NACL BAG 100 ML EPIDURAL SCH (11:30)
[2020-01-08] MEDS ORDERED: EPIDURAL COMMENT XX SCH (11:30)
[2020-01-08] MEDS ORDERED: EPIDURAL/PCA KEYS XX PRN (11:30)
[2020-01-08] MEDS ORDERED: NALOXONE INJ 0.4 MG/1 ML VIAL (J2310) IV PRN (11:30)
[2020-01-08] MEDS ORDERED: REFRIGERATOR IV KEYS XX PRN (11:30)
[2020-01-08] MEDS ORDERED: diphenhydrAMINE 50MG/ML VIAL (J1200) IV PRN (11:30)
[2020-01-08] MEDS ORDERED: ONDANSETRON 4MG/2ML VIAL (J2405) IV PRN (11:30)
[2020-01-08] MEDS: ePHEDrine SULFATE 25 MG/5 ML(5MG/ML) SYRINGE IV PRN ×3 (11:31→12:22)
--- NOTE | 2020-01-08 14:12 | IPNPDOC ---
Obstetrical Progress Note Date of Service Jan 08, 2020 Subjective Patient reports she is ocmfortable with her epidural. States she can't feel anything from under her breast down. Objective Vital Signs Date Time Temp Pulse Resp B/P (MAP) Pulse Ox O2 Delivery O2 Flow Rate FiO2 01/08/20 10:59 95 18 96/54 (68) 01/08/20 10:43 98.1 01/07/20 22:23 98 Room Air Assessment Heart Rate (FHR): 140 Variability: Minimal to moderate Accelerations: Positive Decelerations: Early, Variable Heart Rate Tracing: Category II Tocometer Contractions: Yes Frequency: regular, other (2 to 7 min) Sterile Vaginal Examination Dilation: 9 cm Effacement (%): 100% Station: +1 Postion/Presentation: Cephalic presentation Assessment and Plan Age: 39 : 4 Term: 1 Pre-term: 0 Abortions: 2 Livin EGA at Admission: 39 Weeks & Days 39.1 Status: Reassuring Group B Streptococcus: Negative Anticipate: Vaginal Delivery Additional Comments Patient has received multiple doses of ephedrine due to an epidural that ended up being a spinal. status was a result of maternal BP changes. Will start IV Pitocin to increase contractions. Dr. Berrios has been made aware of FHR changes and cervical changing. DIAZ LESTER CNM Jan 08, 2020 14:11
--- NOTE | 2020-01-08 15:40 | IPNPDOC ---
Obstetrical Progress Note Date of Service Jan 08, 2020 Subjective Patient reports she is feeling some pressure with contractions. Objective Vital Signs Date Time Temp Pulse Resp B/P (MAP) Pulse Ox O2 Delivery O2 Flow Rate FiO2 01/08/20 10:59 95 18 96/54 (68) 01/08/20 10:43 98.1 01/07/20 22:23 98 Room Air Assessment Heart Rate (FHR): 130 Variability: Moderate Accelerations: Positive Decelerations: None Heart Rate Tracing: Category I Tocometer Contractions: Yes Frequency: regular, other (every 5 minutes) Assessment and Plan Status: Reassuring Anticipate: Vaginal Delivery Additional Comments IV Pitocin is at 4 mu/min. Will check patient when she has increased vaginal pressure. DIAZ LESTER CNM Jan 08, 2020 15:40
--- NOTE | 2020-01-08 19:37 | DNPDOC ---
[facility] Delivery Note Delivery Note DATE OF DELIVERY: 01/08/20 at 1722 PREDELIVERY DIAGNOSIS: 39-1/7 weeks' gestation and labor. POST DELIVERY DIAGNOSIS: Delivered. PROCEDURE: Spontaneous vaginal delivery. TV PRODUCTION ASSISTANT: Diaz Porter CNM, PATRICIA ANESTHESIA: epidural. ESTIMATED BLOOD LOSS: 200 mL. FINDINGS: 9 pounds 12 ounces; 4420 grams; male infant, Score 9/9, nuchal cord times 1 loose, AMA, brow presentation. DELIVERY SUMMARY: Patient is a 39-year-old female who is now a who presented for an induction of labor. She requested an epidural for pain management. The patient progressed to fully dilated at 1617 and pushed to a living male with a brow presentation in the OP position with restitution to LOT at 1722. A loose nuchal cord was noted. The anterior shoulder delivered with ease and the corpus immediately followed via [place]. The baby was placed on the maternal abdomen active and crying. The cord was clamped x2 after pulsation ceased and cut by the FOB. A 3-vessel cord was noted. The placenta delivered spontaneously and intact at 1728. Uterine hemostasis was achieved via rapid infu efrem of IV Pitocin and fundal massage. The perineum, vagina, and cervix was inspected and found to be intact. Both mom and baby are in stable condition. All counts of instruments and sponges are correct. DIAZ PORTER CNM Jan 08, 2020 19:37
[2020-01-08] MEDS ORDERED: IBUPROFEN 600 MG TAB PO PRN (19:45)
[2020-01-08] MEDS ORDERED: ACETAMINOPHEN TAB 650MG DOSE (2X325MG) PO PRN (19:45)
[2020-01-08] MEDS ORDERED: RHOGAM 300 MCG (1500 IU) INJ (J2790) IM SCH (19:45)
[2020-01-08] MEDS ORDERED: MEASLES,MUMPS,RUBELLA VACCINE INJ (MMR-II) (90707) SC SCH (19:45)
[2020-01-08] MEDS ORDERED: DOCUSATE SODIUM 100 MG CAP PO PRN (19:45)
[2020-01-08] MEDS ORDERED: METHYLERGONOVINE MALEATE 0.2 MG TAB PO PRN (19:45)
[2020-01-08] MEDS ORDERED: ANUSOL HC CREAM 30GM TOP PRN (19:45)
[2020-01-08] MEDS ORDERED: DIBUCAINE 1% OINTMENT 30GM TOP PRN (19:45)
[2020-01-08] MEDS: ACETAMINOPHEN 500 MG TAB PO PRN (21:04)
[2020-01-09] MEDS: ACETAMINOPHEN 500 MG TAB PO PRN ×2 (05:04→22:34)
[2020-01-09 05:57] VITALS: BP 116/67
[2020-01-09] MEDS: IBUPROFEN 800 MG TAB PO PRN ×2 (06:14→16:41)
[2020-01-09] MEDS ORDERED: ACET-683 PO (08:55)
[2020-01-09] MEDS ORDERED: IBUP80TA PO (08:55)
--- NOTE | 2020-01-09 08:59 | IPNPDOC ---
Progress Note Date of Service: Jan 09, 2020 Day#: 1 Progress Note SUBJECT: Patient is a 39-year-old female who is no a who is a day 1 po stpartum post vaginal delivery. She has been ambulating, voiding spontaneously without issue and tolerating regular diet. Breast feeding and supplementing with formula. Desires to be discharge home today if possible. OBJECTIVE: VITAL SIGNS: Within normal limits, afebrile. Alert and oriented times three. Breath sounds clear to auscultation. Heart rate: Regular rate and rhythm, no murmurs, rubs or gallops. Abdomen: Fundus firm at U. Soft, NTTP. Minimal lochia. ASSESSMENT: Day 1 PLAN: 1. Discharge to home today if possible. 2. Tylenol and Motrin for pain. 3. Encourage breast feeding and ambulation. VS, I&O, 24H, Fishbone Vital Signs/I&O Vital Signs Date Time Temp Pulse Resp B/P (MAP) Pulse Ox O2 Delivery O2 Flow Rate FiO2 01/09/20 05:57 98.5 70 16 116/67 (83) 98 Room Air I&O- Last 24 Hours up to 6 AM 01/09/20 06:00 Intake Total 540.2 ml Output Total 1800 ml Balance -1259.8 ml DIAZ LESTER CNM Jan 09, 2020 08:59
[2020-01-09] MEDS: PRENATAL VITAMINS CHEWABLE TABLET PO SCH (09:14)
[2020-01-09 13:59] VITALS: BP 107/58
[2020-01-09 18:00] VITALS: BP 132/73
[2020-01-10] MEDS: IBUPROFEN 800 MG TAB PO PRN ×2 (00:27→09:27)
[2020-01-10 06:00] VITALS: BP 112/67
[2020-01-10] MEDS: PRENATAL VITAMINS CHEWABLE TABLET PO SCH (09:26)
== END 2020-01-10 12:05 | disposition home or self-care (01) | DRG 560 ==
LOC: M LDI 06:58 → EEVIPCON 06:58 → M OBS 01-08 21:30
PROVIDERS: ADMIT Obstetrics & Gynecology; ATTEND Advanced Practice Midwife
PROC: 3E0P7GC Introduction of Other Therapeutic Substance into Female Reproductive, Via Natural or Artificial Opening (ICD-10-PCS; 2020-01-07)
PROC: 10E0XZZ Delivery of Products of Conception, External Approach (ICD-10-PCS; principal; 2020-01-08)
PROC: 10907ZC Drainage of Amniotic Fluid, Therapeutic from Products of Conception, Via Natural or Artificial Opening (ICD-10-PCS; 2020-01-08)
DX: O64.3XX0 Obstructed labor due to brow presentation, not applicable or unspecified (principal); Z3A.39 39 weeks gestation of pregnancy; Z37.0 Single live birth; O69.81X0 Labor and delivery complicated by cord around neck, without compression, not applicable or unspecified

== ENCOUNTER 2020-07-08 12:15 | Emergency (ER) | payer OTHER ==
[~2020-07-08] VITALS: Ht 170.2 cm; Wt 83.6 kg
[~2020-07-08 12:15] MED LIST changes: +ACET-683 PO; -FLUO10CA15 PO; +FLUO10CA16 PO; +IBUP80TA PO
[2020-07-08] MEDS ORDERED: GABA-843 (12:36)
[2020-07-08] MEDS ORDERED: CETI-24 (12:36)
[2020-07-08] MEDS ORDERED: SOMA350T PO (13:48)
[2020-07-08] MEDS ORDERED: IBUP-1022 PO (13:48)
[2020-07-08 13:58] VITALS: BP 110/74
== END 2020-07-08 14:02 | disposition home or self-care (01) ==
LOC: M ED 12:15
DX: S39.012A Strain of muscle, fascia and tendon of lower back, initial encounter (principal); X58.XXXA Exposure to other specified factors, initial encounter; Y92.89 Other specified places as the place of occurrence of the external cause; Z88.0 Allergy status to penicillin; Z88.1 Allergy status to other antibiotic agents; Z88.2 Allergy status to sulfonamides

== ENCOUNTER → 2020-07-31 | Outpatient (CLI) | payer OTHER ==
[~2020-07-31] MED LIST changes: +CETI-24; +GABA-843; +SOMA350T PO
[2020-07-31 15:15] LABS: C REACTIVE PROTEIN QUANTITATIV < 0.30 MG/DL (0.00-0.30); RHEUMATOID FACTOR QUANT < 10.0 IU/ML (<15.0)
== END ==
LOC: M LAB 13:20
PROVIDERS: ATTEND Internal Medicine Rheumatology
DX: M13.0 Polyarthritis, unspecified (principal)

== ENCOUNTER → 2020-08-06 | Outpatient (CLI) | payer OTHER ==
--- NOTE | 2020-08-06 09:50 | REP ---
INDICATION: RUQ PAIN, GALLSTONES? COMPARISON: None. TECHNIQUE: Real time joy scale ultrasound examination using curved array transducer. FINDINGS: Liver and pancreas are normal in contour, size, and echogenicity without focal hepatic or pancreatic lesion identified. Gallbladder demonstrates 4.7 mm and 3.8 mm echogenic foci without shadowing suggesting small benign polyps. No obvious gallstones, wall thickening, or pericholecystic fluid. No biliary ductal dilatation is appreciated and the common bile duct measures 3.9 mm diameter. The right kidney is normal in reniform shape and appearance without hydronephrosis and measures 11.5 x 5.5 x 3.6 cm. No ascites in the visualized right upper quadrant. IMPRESSION: Presumed small benign gallbladder polyps. Otherwise normal right upper quadrant ultrasound <Electronically signed by Cesar Castro > 08/06/20 0916
== END ==
LOC: M RAD 08:57
PROVIDERS: ATTEND Family Medicine
DX: R10.11 Right upper quadrant pain (principal)

== ENCOUNTER → 2020-10-21 | Outpatient (REF) | payer OTHER ==
[2020-10-21 12:31] LABS: HEMATOCRIT 40.1 % (36.0-47.0); HEMOGLOBIN 13.2 g/dl (12.0-15.5); MEAN CORPUSCULAR HEMOGLOBIN 29.5 pg (27.0-33.0); MEAN CORPUSCULAR HGB CONC 32.9 g/dl (32.0-36.5); MEAN CORPUSCULAR VOLUME 89.5 fl (80.0-96.0); PLATELET COUNT, AUTOMATED 267 10^3/uL (150-450); RED BLOOD COUNT 4.48 10^6/uL (4.00-5.40); WHITE BLOOD COUNT 7.2 10^3/uL (4.0-10.0)
[2020-10-21 13:51] LABS: HEPATITIS C VIRUS ABY INDEX 0.1 INDEX (<0.8); HIV 1&2 SCREEN CENTAUR NEGATIVE (NEGATIVE)
== END ==
LOC: M PLALAB 08:56
PROVIDERS: ATTEND Advanced Practice Midwife
DX: O09.529 Supervision of elderly multigravida, unspecified trimester (principal)

== ENCOUNTER → 2020-12-18 | Outpatient (CLI) | payer OTHER ==
[~2020-12-18] MED LIST changes: +GABA-282; -GABA-843
--- NOTE | 2020-12-18 12:00 | REP ---
INDICATION: ANATOMY COMPARISON: None. TECHNIQUE: Transabdominal obstetrical ultrasound with color Doppler evaluation. FINDINGS: Examination demonstrates a single live intrauterine in breech presentation. motion is identified by technologist. Placenta is noted posterior and grade 1 without evidence for placenta previa or abruption. Amniotic fluid volume is normal. Cervix measures 4.1 cm in length and appears closed.. Gestational age by current measurements 19 weeks 3 days with ALTA 05/11/2021. FHR equals 144 beats per minute. BPD: 4.2 cm at 18 weeks 5 days HC: 16.6 cm at 19 weeks 2 days AC: 14.3 cm at 19 weeks 4 days FL: 3.2 cm at 20 weeks 0 days HL: 3.0 cm at 19 weeks 5 days HC/AC: 1.16 Estimated weight 308 grams (60thpercentile). Anatomical assessment demonstrates normal structures including cranium, choroid plexus, cavum, cerebellum/posterior fossa, facial features, lungs, four-chamber heart/ventricular outflow tracts, diaphragm, stomach, cord insertion/three-vessel cord, kidneys/bladder, spine, and extremities. IMPRESSION: Single live intrauterine in breech presentation demonstrating appropriate estimated weight. Anatomical assessment is complete and normal. No gross abnormalities are identified. <Electronically signed by Cesar Castro > 12/18/20 [id number]
== END ==
LOC: M WHC 10:22
PROVIDERS: ATTEND Advanced Practice Midwife
DX: Z36.89 Encounter for other specified antenatal screening (principal); Z3A.19 19 weeks gestation of pregnancy

== ENCOUNTER 2021-01-28 05:49 | Outpatient (CLI) | payer OTHER ==
[~2021-01-28] VITALS: Ht 170.2 cm; Wt 87.0 kg
[2021-01-28 06:10] VITALS: BP 100/63
[2021-01-28] MEDS ORDERED: PRENTAB9 PO (06:17)
--- NOTE | 2021-01-28 07:44 | IPNPDOC ---
Obstetrical Progress Note Date of Service Jan 28, 2021 Subjective 40 yo at 25 weeks presents with 2 episodes of leakage of fluid per vagina. It was clear. She has right upper abdominal discomfort intermittently. She has a known gallbladder problem. The plan is for cholecystectomy after delivery. good movement. Objective Vital Signs Date Time Temp Pulse Resp B/P (MAP) Pulse Ox O2 Delivery O2 Flow Rate FiO2 01/28/21 06:10 97.9 79 18 100/63 (75) 97 01/28/21 06:09 Room Air Assessment Variability: Moderate Accelerations: Positive Decelerations: None Heart Rate Tracing: Category I Tocometer Contractions: No Sterile Vaginal Examination Dilation: None Assessment and Plan Additional Comments SSE: negative fern, negative nitrazine, negative pool, cervix visually closed A/P 40 yo at 25 weeks with no evidence of ROM. Reviewed dietary restrictions with gallbladder disease. follow up in office as scheduled. JEFERSON CALDWELL MD Jan 28, 2021 07:44
== END 2021-01-28 07:40 | disposition home or self-care (01) ==
LOC: M LDO 05:49
PROVIDERS: ATTEND Advanced Practice Midwife
DX: O26.892 Other specified pregnancy related conditions, second trimester (principal); N89.8 Other specified noninflammatory disorders of vagina; Z3A.25 25 weeks gestation of pregnancy; R10.9 Unspecified abdominal pain; O09.522 Supervision of elderly multigravida, second trimester

== ENCOUNTER 2021-02-06 20:16 | Outpatient (CLI) | payer OTHER ==
[~2021-02-06 20:16] MED LIST changes: +PRENTAB9 PO
[2021-02-06 21:02] LABS: APPEARANCE, URINE CLEAR (CLEAR); BACTERIA, URINE AUTO NEGATIVE (NEGATIVE); BILIRUBIN, URINE AUTO NEGATIVE (NEGATIVE); BLOOD, URINE BLOOD NEGATIVE (NEGATIVE); COLOR, URINE YELLOW (YELLOW); GLUCOSE, URINE (UA) AUTO NEGATIVE (NEGATIVE); KETONE, URINE AUTO NEGATIVE (NEGATIVE); LEUKOCYTE ESTERASE, URINE AUTO TRACE (NEGATIVE); NITRITE, URINE AUTO NEGATIVE (NEGATIVE); PROTEIN, URINE AUTO NEGATIVE (NEGATIVE); RBC, URINE AUTO 2 /HPF (0-3); SPECIFIC GRAVITY URINE AUTO 1.005 (1.002-1.035); SQUAMOUS EPITHELIAL CELL UR AU 1 /HPF (0-6); UROBILINOGEN, URINE AUTO 0.2 mg/dL (0.0-2.0); WBC, URINE AUTO 1 /HPF (0-3)
--- NOTE | 2021-02-06 22:22 | IPNPDOC ---
Text Note Date of Service The patient was seen on 02/06/21. NOTE Labor and Delivery Triage Note: S: 40-year-old 5 para 2 at 26 weeks 4 days presents with lower left pelvic pain that radiated around her fundus. This pain started several hours ago and lasted for approximately hour and has since resolved Denies vaginal bleeding or LOF. Reports active movement. O: vss, AF Reassuring tracing, appropriate for dates Gen: well appearing, NAD Abd: gravid, soft, nttp UA neg A/P: 40-year-old 5 para 2 at 26 weeks 4 days gestational age with left- sided abdominal pain,consistent with round ligament pain. reassuring status -home with PTL precautions -f/u at next OB appt MD COLETTE Fofana KENYA MD. Feb 06, 2021 22:22
== END 2021-02-06 22:07 | disposition home or self-care (01) ==
LOC: M LDO 20:16
PROVIDERS: ATTEND Obstetrics & Gynecology
DX: O26.892 Other specified pregnancy related conditions, second trimester (principal); R10.9 Unspecified abdominal pain; Z88.0 Allergy status to penicillin; Z88.1 Allergy status to other antibiotic agents; Z88.2 Allergy status to sulfonamides

== ENCOUNTER → 2021-02-20 | Outpatient (REF) | payer OTHER ==
[2021-02-20 13:37] LABS: HEMATOCRIT 33.9 % (36.0-47.0); HEMOGLOBIN 10.7 g/dl (12.0-15.5); MEAN CORPUSCULAR HEMOGLOBIN 27.4 pg (27.0-33.0); MEAN CORPUSCULAR HGB CONC 31.6 g/dl (32.0-36.5); MEAN CORPUSCULAR VOLUME 86.9 fl (80.0-96.0); PLATELET COUNT, AUTOMATED 243 10^3/uL (150-450); WHITE BLOOD COUNT 8.8 10^3/uL (4.0-10.0)
== END ==
LOC: M PLALAB 11:22
PROVIDERS: ATTEND Advanced Practice Midwife
DX: O09.529 Supervision of elderly multigravida, unspecified trimester (principal)

== ENCOUNTER → 2021-02-24 | Outpatient (CLI) | payer OTHER ==
[~2021-02-24] MED LIST changes: +GABA-283 PO; -GABA-845 PO
== END ==
LOC: M LAB 07:28
PROVIDERS: ATTEND Advanced Practice Midwife
DX: Z36.89 Encounter for other specified antenatal screening (principal); O99.810 Abnormal glucose complicating pregnancy

== ENCOUNTER 2021-03-19 14:14 | Outpatient (CLI) | payer OTHER ==
[~2021-03-19] VITALS: Ht 170.2 cm; Wt 87.9 kg
[2021-03-19 14:35] VITALS: BP 106/60
--- NOTE | 2021-03-19 20:22 | IPN ---
PROGRESS NOTE DATE: 03/19/2021 SUBJECTIVE: Yamileth is a 40-year-old 5, para 2-0-2-2 at 32 and 3/7 weeks gestation, EDC of 05/11/2021 based on last menstrual period and confirmed by first trimester ultrasound. She presents to labor and delivery today with report of some intermittent cramping and pelvic pressure. She denies vaginal bleeding and leakage of fluid. The fetus has been active. Her care was initiated at [facility] in the first trimester. Her course complicated by advanced maternal age, a history of macrosomia, short interpregnancy interval, depression, and anxiety. OBSTETRIC LABORATORY DATA: O positive. Antibody screen negative. Syphilis negative. Gonorrhea and chlamydia negative. Hepatitis B surface antigen negative. Hepatitis C antibody nonreactive. HIV nonreactive. Rubella immune. Gestational diabetic screening abnormal at 141. Three hour glucose tolerance test normal. Fasting 97 one hour 165, two hour 119, and three hour 85. OBSTETRIC HISTORY: November 2001 a 41 week gestation 8 pounds 7 ounce male vaginal delivery following induction of labor. August 2010 mid trimester loss. November 2018 spontaneous miscarriage. December 2019 a 39 week gestation 9 pound 12 ounce male vaginal delivery. PAST MEDICAL HISTORY: 1. Depression. 2. Anxiety. 3. Panic attack. 4. History of a suicidal attempt in 05/2015. 5. Seasonal allergies. PAST SURGICAL HISTORY: 1. Dilation and curettage (D&C). 2. Colonoscopy. 3. Back surgery. FAMILY HISTORY: Cancer. SOCIAL HISTORY: The patient is single; however, her partner is at bedside. She is a nonsmoker. She denies alcohol and drug use. She has no history of any sexually transmitted infections and denies history of abuse physical, sexual, and emotional. CURRENT MEDICATIONS: vitamin. ALLERGIES: PENICILLIN AND SULFA reaction unknown. OBJECTIVE: VITAL SIGNS: Temperature 98.5, pulse 81, blood pressure 106/60. heart rate is 135 with moderate variability, positive acceleration, no deceleration. There is no pattern of regular contractions. GENERAL: She is alert and oriented x3. She is smiling and talking, does not appear in any discomfort. ABDOMEN: Fetus is cephalic based on Rufino's maneuver. Sterile vaginal exam closed, thick, and ballotable. ASSESSMENT: Intrauterine at 32 and 3/7 weeks. heart rate is category 1. Normal discomfort of third trimester . PLAN: Discharge the patient home. She is to keep her next scheduled appointment on March 25. I did review signs and symptoms of labor, movement counts, and danger signs to report. I reviewed access to care. The patient and her partner have had their questions answered and are agreeable to discharge home.
== END 2021-03-19 16:30 | disposition home or self-care (01) ==
LOC: M LDO 14:14
PROVIDERS: ATTEND Advanced Practice Midwife
DX: O26.893 Other specified pregnancy related conditions, third trimester (principal); R25.2 Cramp and spasm; O09.523 Supervision of elderly multigravida, third trimester; Z3A.32 32 weeks gestation of pregnancy; O99.343 Other mental disorders complicating pregnancy, third trimester; F32.9 Major depressive disorder, single episode, unspecified; F41.9 Anxiety disorder, unspecified; Z91.5 Personal history of self-harm

== ENCOUNTER → 2021-04-16 | Outpatient (REF) | payer OTHER ==
[~2021-04-16] MED LIST changes: +OMEP40CA4 PO; -OMEP40CA97 PO
== END ==
LOC: M SFHCWAGY 09:58
PROVIDERS: ATTEND Advanced Practice Midwife
DX: Z36.89 Encounter for other specified antenatal screening (principal); Z3A.36 36 weeks gestation of pregnancy

== ENCOUNTER 2021-04-22 10:37 | Emergency (ER) | payer OTHER ==
[~2021-04-22] VITALS: Ht 170.2 cm; Wt 80.0 kg
[2021-04-22] MEDS ORDERED: PRENMIS3 PO (15:24)
[2021-04-22] MEDS ORDERED: NS 1,000 ML IV ONE (15:30)
[2021-04-22] MEDS ORDERED: ACETAMINOPHEN *IV* 1,000 MG in IV 1 EA IV ONE (15:30)
[2021-04-22 16:21] LABS: BASO % 0.4 % (0.0-1.0); EOS # 0.1 10^3/uL (0.0-0.5); EOS % 1.7 % (0.0-3.0); HEMOGLOBIN 11.2 g/dl (12.0-15.5); LYMPH # 1.4 10^3/uL (1.5-5.0); LYMPH % 17.7 % (24.0-44.0); MEAN CORPUSCULAR HEMOGLOBIN 27.9 pg (27.0-33.0); MEAN CORPUSCULAR VOLUME 87.1 fl (80.0-96.0); MONO # 0.6 10^3/uL (0.0-0.8); MONO % 7.8 % (2.0-8.0); NEUTROPHILS # 5.6 10^3/uL (1.5-8.5); NEUTROPHILS % 71.6 % (36.0-66.0); PLATELET COUNT, AUTOMATED 222 10^3/uL (150-450); RED BLOOD COUNT 4.02 10^6/uL (4.00-5.40); WHITE BLOOD COUNT 7.8 10^3/uL (4.0-10.0)
[2021-04-22 16:55] LABS: CK-MB VALUE MASS 1.7 NG/ML (<3.6); CPK CREATINE PHOSPHOKINASE 77 U/L (26-192); MB/CK RELATIVE INDEX 2.21 (< OR =4); TROPONIN I < 0.02 NG/ML (< 0.10)
[2021-04-22 17:43] VITALS: BP 115/70
[2021-04-22] MEDS ORDERED: GABA-1171 PO (18:32)
[2021-04-22] MEDS ORDERED: ACET-897 PO (18:32)
[2021-04-22] MEDS ORDERED: GABA800T4 PO (18:32)
[2021-04-22] MEDS ORDERED: FERR325T3 PO (18:32)
[2021-04-22] MEDS ORDERED: ZANA4TAB PO (18:53)
--- NOTE | 2021-04-22 19:09 | IPNPDOC ---
Text Note Date of Service The patient was seen on 04/22/21. NOTE Triage Note Yamileth is a 40yo with SIUP at 37w2d who presented to ER for neck pain that has been occurring for 3 weeks. She notes trying several creams, tylenol, flexeril, tizanidine and heat. Nothing has really relieved the pain over the past 3 weeks. Was referred to PT which she has not done. Has not tried professional massage. Good movement. No fevers/chills. No vaginal bleeding or loss of fluid or regular/painful ctx. (see ER notes for workup done for neck pain- because she has pain and numbness that occasionally radiate down her arm, a cardiac workup was also performed which was negative) Vitals wnl, afebrile Gen: WDWN, resting comfortably (by appearance) in bed, rubs her neck when discussing her neck pain, conversant Abdomen: soft, gravid, NTTP Extremities: no edema of BLE SCE: 1/thick/high Cat I FHRT with +accels, -decels, mod [place]: no ctx pattern Assessment: Yamileth is a 40yo with SIUP at 37w2d with NO e/o labor. SCE 1/thick/high, no ctx pattern. Cat I FHRT. Plan: -safe for discharge home -continue pain meds prn as prescribed -keep routine OB visit scheduled tomorrow -Has IOL scheduled at 39wk -Discussed return precautions MD HUI Rod,Katherine, I+O VSKatherine I+O Laboratory Tests 04/22/21 16:11 Vital Signs Date Time Temp Pulse Resp B/P (MAP) Pulse Ox O2 Delivery O2 Flow Rate FiO2 04/22/21 17:43 69 21 115/70 (85) 98 Room Air 04/22/21 14:42 97.0 Ashlee Garza MD Apr 22, 2021 19:09
--- NOTE | 2021-04-23 20:03 | ECGEPIP ---
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
== END 2021-04-22 17:46 | disposition admitted as inpatient to this hospital (09) ==
LOC: M ED 10:37
DX: O99.891 Other specified diseases and conditions complicating pregnancy (principal); M54.2 Cervicalgia; O99.413 Diseases of the circulatory system complicating pregnancy, third trimester; I45.19 Other right bundle-branch block; Z3A.37 37 weeks gestation of pregnancy; Z79.899 Other long term (current) drug therapy; Z98.890 Other specified postprocedural states; Z88.0 Allergy status to penicillin; Z88.1 Allergy status to other antibiotic agents; Z88.2 Allergy status to sulfonamides
CPT/HCPCS: 80047; 82550; 82553; 85025; 93005; 96361; 96365; 99284; J0131

== ENCOUNTER 2021-04-22 17:50 | Outpatient (CLI) | payer OTHER ==
[~2021-04-22] VITALS: Ht 170.2 cm; Wt 89.5 kg
[~2021-04-22 17:50] MED LIST changes: +PRENMIS3 PO
[2021-04-22 18:09] VITALS: BP 109/70
[2021-04-22] MEDS ORDERED: GABA800T4 PO (18:32)
[2021-04-22] MEDS ORDERED: ACET-897 PO (18:32)
[2021-04-22] MEDS ORDERED: GABA-1171 PO (18:32)
[2021-04-22] MEDS ORDERED: FERR325T3 PO (18:32)
[2021-04-22] MEDS ORDERED: ZANA4TAB PO (18:53)
== END 2021-04-22 19:01 | disposition home or self-care (01) ==
LOC: M LDO 17:50
PROVIDERS: ATTEND Obstetrics & Gynecology
DX: O26.893 Other specified pregnancy related conditions, third trimester (principal); M54.2 Cervicalgia; Z3A.37 37 weeks gestation of pregnancy; O09.513 Supervision of elderly primigravida, third trimester; Z88.0 Allergy status to penicillin; Z88.2 Allergy status to sulfonamides; Z79.899 Other long term (current) drug therapy

== ENCOUNTER 2021-05-02 13:29 | Outpatient (CLI) | payer OTHER ==
[~2021-05-02] VITALS: Ht 170.2 cm; Wt 88.6 kg
[~2021-05-02 13:29] MED LIST changes: +ACET-897 PO; +FERR325T3 PO; +GABA-1171 PO; +GABA800T4 PO; +ZANA4TAB PO
--- NOTE | 2021-05-02 14:14 | IPNPDOC ---
Text Note Date of Service The patient was seen on 05/02/21. NOTE Outpatient 40yo ALTA 05/11/2021. Presents @ 38w5d with complaints of "unrelenting pain". Denies LOF, bleeding. States uncertain movement. No apparent distress. Cat I tracing Irregular UC SVE /-2, unchanged from exam yesterday Pt is reassured. Discharged home. Scheduled for IOL Wednesday. Protocol reviewed. Geri Christianson CNM May 02, 2021 14:14
== END 2021-05-02 14:24 | disposition home or self-care (01) ==
LOC: M LDO 13:29
PROVIDERS: ATTEND Advanced Practice Midwife
DX: O26.893 Other specified pregnancy related conditions, third trimester (principal); Z3A.38 38 weeks gestation of pregnancy; R10.2 Pelvic and perineal pain; Z88.0 Allergy status to penicillin; Z88.2 Allergy status to sulfonamides; Z79.899 Other long term (current) drug therapy

== ENCOUNTER 2021-05-05 19:15 | Inpatient (IN) | payer OTHER ==
[~2021-05-05] VITALS: Ht 170.2 cm; Wt 89.6 kg
[2021-05-05 19:55] VITALS: BP 124/77
[2021-05-05 23:35] VITALS: BP 107/60
[2021-05-06] VITALS (55 sets, daily range): BP systolic 94–144; BP diastolic 52–82
[2021-05-06] MEDS ORDERED: BUTORPHANOL 2 MG/ML INJ (J0595) IV ONE (01:50)
[2021-05-06] MEDS ORDERED: PROMETHAZINE INJ 25 MG/ML VIAL (J2550) IV ONE (01:50)
[2021-05-06 06:20] LABS: HEMATOCRIT 36.5 % (36.0-47.0); HEMOGLOBIN 11.8 g/dl (12.0-15.5); MEAN CORPUSCULAR HEMOGLOBIN 27.6 pg (27.0-33.0); MEAN CORPUSCULAR HGB CONC 32.3 g/dl (32.0-36.5); MEAN CORPUSCULAR VOLUME 85.3 fl (80.0-96.0); PLATELET COUNT, AUTOMATED 267 10^3/uL (150-450); RED BLOOD COUNT 4.28 10^6/uL (4.00-5.40)
[2021-05-06] MEDS ORDERED: ACET500P3 PO (07:13)
[2021-05-06] MEDS ORDERED: CALC-265 PO (07:13)
[2021-05-06] MEDS ORDERED: FERR325T3 PO (07:13)
[2021-05-06] MEDS ORDERED: GABA-282 PO (07:32)
[2021-05-06] MEDS ORDERED: ZYRTTAB8 PO (08:19)
[2021-05-06] MEDS ORDERED: NORA0.35 PO (08:19)
[2021-05-06] MEDS ORDERED: OXYTOCIN DRIP 30 UNITS in IV 1 EA IV SCH (08:35)
[2021-05-06] MEDS ORDERED: GABAPENTIN 300 MG CAP PO SCH (09:00)
[2021-05-06] MEDS: LR 1,000 ML IV SCH ×3 (09:01→13:42)
[2021-05-06] MEDS: GABAPENTIN 300 MG CAP PO SCH ×3 (09:03→22:21)
[2021-05-06] MEDS ORDERED: FENTANYL 2MCG/ML ROPIVACAINE 0.2% IN 0.9% NACL 100ML IVBAG As Ordered ONE (13:50)
[2021-05-06] MEDS ORDERED: REFRIGERATOR IV KEYS XX PRN (17:00)
[2021-05-06] MEDS ORDERED: FENTANYL/ROPIVACAINE/NACL BAG 100 ML EPIDURAL SCH (17:00)
[2021-05-06] MEDS ORDERED: ONDANSETRON 4MG/2ML VIAL IV PRN ×2 (17:00→18:55)
[2021-05-06] MEDS ORDERED: diphenhydrAMINE 50MG/ML VIAL (J1200) IV PRN (17:00)
[2021-05-06] MEDS ORDERED: NALOXONE INJ 0.4MG/1ML VIAL (J2310 PER 1MG) IV PRN (17:00)
[2021-05-06] MEDS ORDERED: EPIDURAL/PCA KEYS XX PRN (17:00)
[2021-05-06] MEDS ORDERED: EPIDURAL COMMENT XX SCH (17:00)
[2021-05-06] MEDS ORDERED: MEASLES,MUMPS,RUBELLA VACCINE INJ (MMR-II) (90707) SC SCH (18:55)
[2021-05-06] MEDS ORDERED: IBUPROFEN 600MG TAB PO PRN (18:55)
[2021-05-06] MEDS ORDERED: OXYTOCIN DRIP 30 UNITS in IV 1 EA IV ONE (18:55)
[2021-05-06] MEDS ORDERED: ACETAMINOPHEN TAB 650MG DOSE (2X325MG) PO PRN (18:55)
[2021-05-06] MEDS ORDERED: RHOGAM 300 MCG (1500 IU) INJ (J2790) IM SCH (18:55)
[2021-05-06] MEDS ORDERED: METHYLERGONOVINE MALEATE 0.2 MG TAB PO PRN (18:55)
[2021-05-06] MEDS ORDERED: DOCUSATE SODIUM 100MG CAPSULE PO PRN (18:55)
--- NOTE | 2021-05-06 19:01 | DNPDOC ---
[facility] Delivery Note Delivery Note DATE OF DELIVERY: May 06, 2021 PREDELIVERY DIAGNOSIS: 39-2/7 weeks' gestation, early labor. POST DELIVERY DIAGNOSIS: Delivered. PROCEDURE: Spontaneous vaginal delivery. MACHINE WEDGER: Dr. Jeferson Caldwell MD ANESTHESIA: epidural. ESTIMATED BLOOD LOSS: 300 mL. FINDINGS: 8 pound 10 ounce female , Score 8/9. DELIVERY SUMMARY: Patient is a 40-year-old 5 now para 3023 who was admitted to labor and delivery for early labor at term. She had Pitocin augmentation. She had AROM performed at 5 cm dilation. After a 5 minute second stage of labor she had a spontaneous vaginal delivery of a 8 lb. 10 oz female. No nuchal cord. Shoulders delivered with ease. Placenta delivered spontaneously and appeared intact. Pt received IV Pitocin immediately after delivery of the placenta. No lacerations present. Sponge count correct. JEFERSON CALDWELL MD May 06, 2021 19:00
[2021-05-07 06:04] VITALS: BP 131/71
[2021-05-07] MEDS: IBUPROFEN 800 MG TAB PO PRN ×2 (06:08→16:41)
[2021-05-07] MEDS: PRENATAL VITAMINS CHEWABLE TABLET PO SCH (09:32)
[2021-05-07] MEDS: GABAPENTIN 300 MG CAP PO SCH ×3 (09:33→20:27)
[2021-05-07 18:00] VITALS: BP 128/78
[2021-05-07] MEDS: ACETAMINOPHEN 500 MG TAB PO PRN (23:31)
[2021-05-08] MEDS: IBUPROFEN 800 MG TAB PO PRN (05:00)
[2021-05-08 06:17] VITALS: BP 116/71
[2021-05-08] MEDS: PRENATAL VITAMINS CHEWABLE TABLET PO SCH (08:05)
[2021-05-08] MEDS: GABAPENTIN 300 MG CAP PO SCH ×2 (08:06→16:42)
[2021-05-08] MEDS: ACETAMINOPHEN 500 MG TAB PO PRN (11:44)
[2021-05-08 18:00] VITALS: BP 134/71
== END 2021-05-08 18:50 | disposition home or self-care (01) | DRG 560 ==
LOC: M LDO 19:15 → M LDI 05-06 08:23 → M OBS 05-06 20:29
PROVIDERS: ADMIT Specialist; ATTEND Specialist
PROC: 10E0XZZ Delivery of Products of Conception, External Approach (ICD-10-PCS; principal; 2021-05-06)
PROC: 10907ZC Drainage of Amniotic Fluid, Therapeutic from Products of Conception, Via Natural or Artificial Opening (ICD-10-PCS; 2021-05-06)
DX: O80 Encounter for full-term uncomplicated delivery (principal); Z3A.39 39 weeks gestation of pregnancy; Z37.0 Single live birth

== ENCOUNTER → 2021-06-25 | Outpatient (CLI) | payer OTHER ==
[~2021-06-25] MED LIST changes: +ACET500P3 PO; +CALC-265 PO; +GABA-282 PO; +NORA0.35 PO; +OMEP-218 PO
== END ==
LOC: M LABSMTC 11:44
PROVIDERS: ATTEND Anesthesiology
DX: Z11.52 Encounter for screening for COVID-19 (principal)

== ENCOUNTER 2021-06-30 12:25 | Day surgery (SDC) | payer OTHER ==
[~2021-06-30] VITALS: Ht 170.2 cm; Wt 81.4 kg
[~2021-06-30 12:25] MED LIST changes: +LIDOCAINE 1% MDV 20ML VIAL SQ PRN; +LR 1,000 ML IV ONE
[2021-06-30 13:07] LABS: HEMATOCRIT 43.5 % (36.0-47.0); HEMOGLOBIN 13.8 g/dl (12.0-15.5); MEAN CORPUSCULAR HEMOGLOBIN 28.4 pg (27.0-33.0); MEAN CORPUSCULAR HGB CONC 31.7 g/dl (32.0-36.5); MEAN CORPUSCULAR VOLUME 89.5 fl (80.0-96.0); PLATELET COUNT, AUTOMATED 280 10^3/uL (150-450); RED BLOOD COUNT 4.86 10^6/uL (4.00-5.40); WHITE BLOOD COUNT 6.2 10^3/uL (4.0-10.0)
[2021-06-30] MEDS ORDERED: fentaNYL 100 MCG/2 ML INJECTION (J3010) As Ordered ONE (14:06)
[2021-06-30] MEDS ORDERED: ONDANSETRON 4MG/2ML VIAL As Ordered ONE (14:06)
[2021-06-30] MEDS ORDERED: propofoL 200 MG/20 ML VIAL As Ordered ONE (14:06)
[2021-06-30] MEDS ORDERED: LIDOCAINE 2% 100MG/5ML SDV (FOR ANES.) As Ordered ONE (14:06)
[2021-06-30] MEDS ORDERED: MIDAZOLAM INJ 2MG/2ML VIAL (J2250 PER 1MG) As Ordered ONE (14:06)
[2021-06-30] MEDS ORDERED: ROCURONIUM BROMIDE 50 MG/5 ML VIAL As Ordered ONE (14:06)
[2021-06-30] MEDS ORDERED: dexameTHASONE 4 MG/ML 1ML VIAL (J1100 PER 1MG) As Ordered ONE (14:06)
[2021-06-30] MEDS ORDERED: BUPIVACAINE HCL 0.25% 10ML VIAL As Ordered ONE (14:11)
--- NOTE | 2021-06-30 14:17 | ROOPDOC ---
[facility] Report Of Operation Report of Operation DATE OF PROCEDURE: 06/30/21 PREPROCEDURE DIAGNOSES: Undesired fertility. POSTPROCEDURE DIAGNOSES: Same. PROCEDURE PERFORMED: Laparoscopic bilateral salpingectomy. SURGEON: Jeferson Caldwell MD ANESTHESIA: GETA. ESTIMATED BLOOD LOSS: Approximately 10 mL. COMPLICATIONS: none. FINDINGS: Normal uterus fallopian tubes and ovaries. Normal upper abdomen. SPECIMENS REMOVED: Bilateral fallopian tubes PROCEDURE NOTE: The patient was taken to the operating room where general endotracheal anesthesia was induced. She was prepped and draped in a sterile fashion in the dorsal lithotomy position. A sponge stick was placed in the vagina to use as a manipulator. A periumbilical incision was made with a scalpel. A Veress needle was placed through this incision while tenting up on the skin of the abdomen. An intra-abdominal location the Veress needle was assessed with the use of a saline filled syringe. A pneumoperitoneum was created. The Veress needle was removed. A 5 mm trocar using Visiport was inserted through this incision. A 5 and 8 mm suprapubic port were placed under direct visualization. A grasping instrument was used to elevate each fallopian tube. A LigaSure device was used to coagulate and incise broad ligament attachments to the fallopian tube. Both tubes were excised near their origin. Both tubes were removed through the suprapubic port. The pneumoperitoneum was released. All instruments were removed. The skin was closed with 4-0 Monocryl subcuticular sutures. Sponge instrument and needle counts were correct. The patient went to the recovery room in stable condition. JEFERSON CALDWELL MD Jun 30, 2021 14:17
[2021-06-30] MEDS ORDERED: OXYC1TAB23 PO (14:19)
[2021-06-30] MEDS ORDERED: IBUP-1022 PO (14:20)
[2021-06-30] MEDS ORDERED: SUGAMMADEX SODIUM 500 MG/5 ML VIAL (BRIDION) As Ordered ONE (14:47)
[2021-06-30] MEDS ORDERED: KETOROLAC 60MG 2ML VIAL As Ordered ONE (14:47)
[2021-06-30] MEDS ORDERED: ACETAMINOPHEN 1000MG 100ML IV BTL (OFIRMEV) (J0131 PER 10MG) As Ordered ONE (14:47)
[2021-06-30] MEDS ORDERED: HYDROmorphone HCL 2 MG/ML 1ML VIAL As Ordered ONE (14:48)
[2021-06-30] MEDS ORDERED: fentaNYL 100 MCG/2 ML INJECTION (J3010) IV PRN (16:15)
[2021-06-30] MEDS ORDERED: ONDANSETRON 4MG/2ML VIAL IV PRN (16:15)
[2021-06-30] MEDS ORDERED: PERCOCET 5MG/325MG TAB PO PRN (16:15)
[2021-06-30] MEDS ORDERED: HYDROMORPHONE HCL 0.5 MG/ 0.5 ML SYRINGE (J1170 PER 1) IV PRN (16:15)
[2021-06-30] MEDS ORDERED: LR 1,000 ML IV SCH ×2 (16:15)
[2021-06-30] MEDS ORDERED: oxyCODONE 5MG TAB PO PRN (16:15)
[2021-06-30 17:00] VITALS: BP 126/81
== END 2021-06-30 17:18 | disposition home or self-care (01) ==
LOC: M SDC 12:25
PROVIDERS: ATTEND Specialist
DX: Z30.2 Encounter for sterilization (principal); K21.9 Gastro-esophageal reflux disease without esophagitis; M79.7 Fibromyalgia; M54.9 Dorsalgia, unspecified; F32.9 Major depressive disorder, single episode, unspecified; F41.9 Anxiety disorder, unspecified; G43.909 Migraine, unspecified, not intractable, without status migrainosus; J45.909 Unspecified asthma, uncomplicated; Z87.09 Personal history of other diseases of the respiratory system; Z88.0 Allergy status to penicillin; Z88.2 Allergy status to sulfonamides; Z79.899 Other long term (current) drug therapy
CPT/HCPCS: 36415; 58661; 81025; 85027; 88302; J0131; J1100; J1170; J1885; J2250; J2405; J3010

== ENCOUNTER → 2021-12-16 | Outpatient (CLI) | payer OTHER ==
[~2021-12-16] MED LIST changes: -FLUO10CA16 PO; +FLUO10CA18 PO; -LIDOCAINE 1% MDV 20ML VIAL SQ PRN; -LR 1,000 ML IV ONE; +OMEP-173 PO; -OMEP-218 PO; +OXYC1TAB23 PO
== END ==
LOC: M SOG 10:48
PROVIDERS: ATTEND Orthopaedic Surgery
DX: M54.6 Pain in thoracic spine (principal); M54.50 Low back pain, unspecified

== ENCOUNTER → 2021-12-26 | Outpatient (CLI) | payer OTHER | LOC: M RAD 07:26 | PROVIDERS: ATTEND Surgery | DX: K82.9 Disease of gallbladder, unspecified (principal); R10.11 Right upper quadrant pain; R11.2 Nausea with vomiting, unspecified | CPT/HCPCS: 78227; A9537 ==

== ENCOUNTER → 2022-02-07 | Outpatient (CLI) | payer OTHER ==
[~2022-02-07] MED LIST changes: +DULO1CAP6 PO; +VITA200016 PO
== END ==
LOC: M LABSMTC 10:29
PROVIDERS: ATTEND Anesthesiology
DX: Z01.812 Encounter for preprocedural laboratory examination (principal); Z20.822 Contact with and (suspected) exposure to COVID-19

== ENCOUNTER → 2022-02-10 | Outpatient (CLI) | payer OTHER | LOC: M PLAIMG 10:08 | PROVIDERS: ATTEND Pediatrics | DX: J32.9 Chronic sinusitis, unspecified (principal) ==

== ENCOUNTER → 2022-02-19 | Outpatient (CLI) | payer OTHER | LOC: M LABSMTC 08:58 | PROVIDERS: ATTEND Anesthesiology | DX: Z01.812 Encounter for preprocedural laboratory examination (principal); Z11.52 Encounter for screening for COVID-19 ==

== ENCOUNTER 2022-02-24 11:19 | Day surgery (SDC) | payer OTHER ==
[~2022-02-24] VITALS: Ht 170.2 cm; Wt 88.5 kg
[~2022-02-24 11:19] MED LIST changes: +BUPIVACAINE/EPIN 0.25% 30 ML VIAL As Ordered ONE; +CLINDAMYCIN 900 MG in IV 1 EA IV ONE; +LR 1,000 ML IV ONE
[2022-02-24] MEDS ORDERED: fentaNYL 100 MCG/2 ML INJECTION As Ordered ONE ×2 (14:28→14:34)
[2022-02-24] MEDS ORDERED: MIDAZOLAM INJ 2MG/2ML VIAL (J2250 PER 1MG) As Ordered ONE (14:28)
[2022-02-24] MEDS ORDERED: ROCURONIUM BROMIDE 50 MG/5 ML VIAL As Ordered ONE (14:28)
[2022-02-24] MEDS ORDERED: dexameTHASONE 4 MG/ML 1ML VIAL (J1100 PER 1MG) As Ordered ONE (14:28)
[2022-02-24] MEDS ORDERED: LIDOCAINE 2% 100MG/5ML SDV (FOR ANES.) As Ordered ONE (14:28)
[2022-02-24] MEDS ORDERED: ONDANSETRON 4MG/2ML VIAL As Ordered ONE (14:28)
[2022-02-24] MEDS ORDERED: propofoL 200 MG/20 ML VIAL As Ordered ONE (14:28)
[2022-02-24] MEDS ORDERED: KETOROLAC 60MG 2ML VIAL As Ordered ONE (14:42)
[2022-02-24] MEDS ORDERED: LABETALOL 100MG/20ML VIAL As Ordered ONE (15:06)
[2022-02-24] MEDS ORDERED: ACETAMINOPHEN 1000MG 100ML IV BTL (OFIRMEV) (J0131 PER 10MG) As Ordered ONE (15:23)
[2022-02-24] MEDS ORDERED: HYDROmorphone HCL 2MG/ML 1ML VIAL As Ordered ONE (15:35)
[2022-02-24] MEDS ORDERED: SUGAMMADEX SODIUM 500 MG/5 ML VIAL (BRIDION) As Ordered ONE (15:36)
[2022-02-24] MEDS ORDERED: LR 1,000 ML IV SCH (16:10)
[2022-02-24] MEDS ORDERED: PERCOCET 5MG/325MG TAB PO PRN (16:10)
[2022-02-24] MEDS ORDERED: fentaNYL 100 MCG/2 ML INJECTION IV PRN (16:10)
[2022-02-24] MEDS ORDERED: ONDANSETRON 4MG/2ML VIAL IV PRN (16:10)
[2022-02-24] MEDS ORDERED: NORCO, ANEXSIA 5/325MG TABLET (HYDROcodone/ACETAMINOPHEN) PO PRN (16:10)
[2022-02-24 18:30] VITALS: BP 123/70
== END 2022-02-24 18:35 | disposition home or self-care (01) ==
LOC: M SDC 11:19
PROVIDERS: ATTEND Surgery
DX: K81.1 Chronic cholecystitis (principal); K42.9 Umbilical hernia without obstruction or gangrene; E78.9 Disorder of lipoprotein metabolism, unspecified; F33.9 Major depressive disorder, recurrent, unspecified; F41.9 Anxiety disorder, unspecified; F43.10 Post-traumatic stress disorder, unspecified; K21.9 Gastro-esophageal reflux disease without esophagitis; K58.9 Irritable bowel syndrome, unspecified; M19.90 Unspecified osteoarthritis, unspecified site; M79.7 Fibromyalgia; Z86.14 Personal history of Methicillin resistant Staphylococcus aureus infection; Z88.0 Allergy status to penicillin; Z88.1 Allergy status to other antibiotic agents; Z88.2 Allergy status to sulfonamides; Z79.899 Other long term (current) drug therapy; Z87.891 Personal history of nicotine dependence
CPT/HCPCS: 47562; 81025; 88304; J0131; J1100; J1170; J1885; J2250; J2405; J3010; S2900

== ENCOUNTER 2022-07-17 12:53 | Emergency (ER) | payer OTHER ==
[~2022-07-17] VITALS: Ht 170.2 cm; Wt 90.9 kg
[~2022-07-17 12:53] MED LIST changes: -BUPIVACAINE/EPIN 0.25% 30 ML VIAL As Ordered ONE; -CLINDAMYCIN 900 MG in IV 1 EA IV ONE; -LR 1,000 ML IV ONE
[2022-07-17] MEDS ORDERED: BUPR300T92 (13:11)
[2022-07-17] MEDS ORDERED: FLEET OIL RETENTION ENEMA PR STA (13:46)
[2022-07-17] MEDS ORDERED: ENEMENE6 PR (15:20)
[2022-07-17 15:30] VITALS: BP 119/79
== END 2022-07-17 15:38 | disposition home or self-care (01) ==
LOC: M ED 12:53 → EDBD 12:53 → M ED 15:38
DX: K59.00 Constipation, unspecified (principal); J45.909 Unspecified asthma, uncomplicated; K58.9 Irritable bowel syndrome, unspecified; E28.2 Polycystic ovarian syndrome; M43.26 Fusion of spine, lumbar region; R51.9 Headache, unspecified; Z86.19 Personal history of other infectious and parasitic diseases; Z88.0 Allergy status to penicillin; Z88.2 Allergy status to sulfonamides; Z79.899 Other long term (current) drug therapy

== ENCOUNTER → 2023-04-30 | Outpatient (REF) | payer OTHER ==
[~2023-04-30] MED LIST changes: +BUPR300T92; +ENEMENE6 PR; +MONT-5 PO; -SING10TA32 PO
[2023-04-30 12:10] LABS: ALBUMIN 3.7 G/DL (3.2-5.2); ALKALINE PHOSPHATASE 129 U/L (46-116); ALT/SGPT 100 U/L (7.0-40); AST/SGOT 55 U/L (<34); BILIRUBIN,TOTAL 0.7 MG/DL (0.3-1.2); BLOOD UREA NITROGEN 9 MG/DL (9-23); CALCIUM LEVEL 8.9 MG/DL (8.5-10.1); CARBON DIOXIDE LEVEL 25 MMOL/L (20-31); CHLORIDE LEVEL 103 MMOL/L (98-107); CHOLESTEROL LEVEL 134 MG/DL (<200); CHOLESTEROL RISK RATIO 3.74 (<5); CREATININE FOR GFR 0.79 MG/DL (0.55-1.30); GLOMERULAR FILTRATION RATE > 60.0 (>58); GLUCOSE, FASTING 165 MG/DL (60-100); HDL CHOLESTEROL 35.8 MG/DL (>40); NON-HDL-C 98.2 MG/DL; POTASSIUM SERUM 3.8 MMOL/L (3.5-5.1); SODIUM LEVEL 138 MMOL/L (136-145); THYROID STIMULATING HORMONE 2.539 uIU/ML (0.55-4.78); TOTAL PROTEIN 6.7 G/DL (5.7-8.2); TRIGLYCERIDES LEVEL 196 MG/DL (<150)
[2023-04-30 12:29] LABS: HEMOGLOBIN A1c 5.8 % (4.0-6.0)
== END ==
LOC: M LAB REF 11:29
PROVIDERS: ATTEND Pediatrics
DX: E78.5 Hyperlipidemia, unspecified (principal); Z68.34 Body mass index [BMI] 34.0-34.9, adult

== ENCOUNTER 2024-02-23 08:51 | Day surgery (SDC) | payer OTHER ==
[~2024-02-23] VITALS: Ht 170.2 cm; Wt 99.8 kg
[~2024-02-23 08:51] MED LIST changes: +BUPR-597 PO; -BUPR300T92; +DRON5CAP13 PO; +DULO1CAP5 PO; +FAMO40TA3 PO; +FLUO-290 PO; -FLUO10CA18 PO; -GABA-283 PO; +GABA-284 PO; +GABA600T4 PO; +LIDOCAINE 2% 100MG/5ML SDV (FOR ANES.) As Ordered ONE; +METF-838 PO; +PREN27TA3 PO; +QUET50TA4 PO; +XENI120C23 PO; +fentaNYL 100 MCG/2 ML INJECTION As Ordered ONE; +propofoL 200 MG/20 ML VIAL As Ordered ONE; +propofoL 500 MG/50 ML VIAL As Ordered ONE
[2024-02-23] MEDS: NS 1,000 ML IV ONE (09:26)
[2024-02-23 10:56] VITALS: TEMP 97.3
[2024-02-23 11:15] VITALS: BP 144/89; O2SAT 95
== END 2024-02-23 11:27 | disposition home or self-care (01) ==
LOC: M OPP 08:51
PROVIDERS: ATTEND Internal Medicine Gastroenterology
DX: Z12.11 Encounter for screening for malignant neoplasm of colon (principal); D12.2 Benign neoplasm of ascending colon; K21.00 Gastro-esophageal reflux disease with esophagitis, without bleeding; K57.30 Diverticulosis of large intestine without perforation or abscess without bleeding; K64.0 First degree hemorrhoids; K58.9 Irritable bowel syndrome, unspecified; Z86.010 Personal history of colon polyps; D50.9 Iron deficiency anemia, unspecified; Z90.49 Acquired absence of other specified parts of digestive tract; J45.909 Unspecified asthma, uncomplicated; G47.30 Sleep apnea, unspecified; Z79.899 Other long term (current) drug therapy; Z79.84 Long term (current) use of oral hypoglycemic drugs; Z88.2 Allergy status to sulfonamides; Z88.0 Allergy status to penicillin
CPT/HCPCS: 43239; 45385; 88305; J3010

== ENCOUNTER 2025-05-01 06:18 | Day surgery (SDC) | payer OTHER ==
[~2025-05-01] VITALS: Ht 170.2 cm; Wt 94.3 kg
[~2025-05-01 06:18] MED LIST changes: +ACETAMINOPHEN 500 MG TAB PO ONE; -BUPR-597 PO; +BUPR-766 PO; +CLINDAMYCIN 900 MG in IV 1 EA IV ONE; +D5W IV ONE; -DRON5CAP13 PO; +DRON5CAP19 PO; -ENEMENE6 PR; +GABA-1172; +GABA-1172 PO; +GABA-1490 PO; +GABA-1635 PO; -GABA-282; -GABA-282 PO; -GABA600T4 PO; -GABA800T4 PO; +GENTAMICIN IV ONE; -LIDOCAINE 2% 100MG/5ML SDV (FOR ANES.) As Ordered ONE; -MIDO2.5T PO; +MIDO2.5T3 PO; +OMEP40CA5 PO; +SCOPOLAMINE 1MG TRANSDERMAL PATCH TOP ONE; +SODI133E28 PR; +TIRZ5PEN3; -fentaNYL 100 MCG/2 ML INJECTION As Ordered ONE; -propofoL 200 MG/20 ML VIAL As Ordered ONE; -propofoL 500 MG/50 ML VIAL As Ordered ONE
[2025-05-01] MEDS ORDERED: LR 1,000 ML IV SCH (06:25)
[2025-05-01 06:40] LABS: BASO # 0.1 10^3/uL (0.0-0.2); BASO % 0.8 % (0.0-1.0); EOS # 0.3 10^3/uL (0.0-0.5); EOS % 3.9 % (0.0-3.0); LYMPH # 2.6 10^3/uL (1.5-5.0); LYMPH % 35.2 % (24.0-44.0); MONO # 0.6 10^3/uL (0.0-0.8); MONO % 8.1 % (2.0-8.0); NEUTROPHILS # 3.8 10^3/uL (1.5-8.5); NEUTROPHILS % 51.9 % (36.0-66.0); PLATELET COUNT, AUTOMATED 287 10^3/uL (150-450)
[2025-05-01 07:01] LABS: CALCIUM LEVEL 9.0 MG/DL (8.5-10.1); CARBON DIOXIDE LEVEL 27.0 MMOL/L (20-31); CHLORIDE LEVEL 103.0 MMOL/L (98-107); CREATININE FOR GFR 1.05 MG/DL (0.55-1.30); GLOMERULAR FILTRATION RATE 66.4 (>58); POTASSIUM SERUM 3.3 MMOL/L (3.5-5.1); SODIUM LEVEL 142.0 MMOL/L (136-145)
[2025-05-01] MEDS: SCOPOLAMINE 1MG TRANSDERMAL PATCH TOP ONE (07:14)
[2025-05-01] MEDS ORDERED: MIDAZOLAM INJ 2 MG/2 ML VIAL As Ordered ONE (07:17)
[2025-05-01] MEDS ORDERED: LIDOCAINE 2% 100 MG/5 ML SDV (FOR ANES.) As Ordered ONE (07:17)
[2025-05-01] MEDS ORDERED: ROCURONIUM BROMIDE 50MG/5ML VIAL As Ordered ONE (07:17)
[2025-05-01] MEDS: ceFAZolin SOD 2 GM IV ONCE IV ONE (07:31)
[2025-05-01] MEDS: metroNIDAZOLE 500 MG in IV 1 EA IV ONE (07:43)
[2025-05-01] MEDS ORDERED: dexAMETHasone 4 MG/ML 1 ML VIAL As Ordered ONE (07:54)
[2025-05-01] MEDS ORDERED: ACETAMINOPHEN 1000MG/100ML IV BAG As Ordered ONE (08:08)
[2025-05-01] MEDS ORDERED: SUGAMMADEX SODIUM 200 MG/2 ML VIAL As Ordered ONE (08:09)
[2025-05-01] MEDS ORDERED: ONDANSETRON 4MG 2ML VIAL As Ordered ONE (08:09)
[2025-05-01] MEDS ORDERED: HYDROmorphone HCL 2 MG/ML 1 ML VIAL As Ordered ONE (08:10)
[2025-05-01] MEDS ORDERED: KETOROLAC 30 MG/ML 1 ML VIAL As Ordered ONE (09:43)
[2025-05-01] MEDS ORDERED: HYDROMORPHONE HCL 0.5 MG/0.5 ML SYRINGE IV PRN (10:15)
[2025-05-01] MEDS ORDERED: ONDANSETRON 4MG 2ML VIAL IV PRN (10:30)
[2025-05-01] MEDS: diphenhydrAMINE 50 MG/ML VIAL IV PRN (11:46)
[2025-05-01 13:42] VITALS: BP 137/82; TEMP 96.8; O2SAT 95
== END 2025-05-01 13:45 | disposition home or self-care (01) ==
LOC: M SDC 06:18
PROVIDERS: ATTEND General Practice
DX: N93.9 Abnormal uterine and vaginal bleeding, unspecified (principal); N85.8 Other specified noninflammatory disorders of uterus; N83.292 Other ovarian cyst, left side; N80.03 Adenomyosis of the uterus; Z90.79 Acquired absence of other genital organ(s); E66.9 Obesity, unspecified; R73.03 Prediabetes; Z79.899 Other long term (current) drug therapy; Z79.84 Long term (current) use of oral hypoglycemic drugs; Z79.85 Long-term (current) use of injectable non-insulin antidiabetic drugs; Z88.0 Allergy status to penicillin; Z88.2 Allergy status to sulfonamides; M79.7 Fibromyalgia; Z98.51 Tubal ligation status; Z90.89 Acquired absence of other organs; K21.9 Gastro-esophageal reflux disease without esophagitis; K58.9 Irritable bowel syndrome, unspecified; Z90.49 Acquired absence of other specified parts of digestive tract; Z68.33 Body mass index [BMI] 33.0-33.9, adult
CPT/HCPCS: 36415; 58571; 80048; 81025; 85025; 86850; 86900; 86901; 88307; J0131; J0665; J0690; J1100; J1171; J1200; J1836; J1885; J2250; J2405; J2765; J3010

== ENCOUNTER 2025-07-09 11:44 | Emergency (ER) | payer OTHER ==
[~2025-07-09] VITALS: Ht 167.6 cm; Wt 90.9 kg
[~2025-07-09 11:44] MED LIST changes: -ACETAMINOPHEN 500 MG TAB PO ONE; -CLINDAMYCIN 900 MG in IV 1 EA IV ONE; -D5W IV ONE; -GENTAMICIN IV ONE; -IBUP-1022 PO; +IBUP600T42 PO; -SCOPOLAMINE 1MG TRANSDERMAL PATCH TOP ONE
[2025-07-09 16:45] VITALS: BP 121/70; TEMP 98.3; O2SAT 98
== END 2025-07-09 16:56 | disposition home or self-care (01) ==
LOC: M ED 11:44
DX: S80.01XA Contusion of right knee, initial encounter (principal); S80.11XA Contusion of right lower leg, initial encounter; W01.198A Fall on same level from slipping, tripping and stumbling with subsequent striking against other object, initial encounter; G43.909 Migraine, unspecified, not intractable, without status migrainosus; A69.20 Lyme disease, unspecified; F31.9 Bipolar disorder, unspecified; K21.9 Gastro-esophageal reflux disease without esophagitis; K58.9 Irritable bowel syndrome, unspecified; Y92.009 Unspecified place in unspecified non-institutional (private) residence as the place of occurrence of the external cause; Y93.89 Activity, other specified; Y99.9 Unspecified external cause status; Z79.1 Long term (current) use of non-steroidal anti-inflammatories (NSAID); Z79.4 Long term (current) use of insulin; Z79.899 Other long term (current) drug therapy; Z88.0 Allergy status to penicillin; Z88.2 Allergy status to sulfonamides